=== PATIENT | male | born 1970 | race African-American/Black ===

== ENCOUNTER 2016-10-13 19:12 | Inpatient (IN) | payer OTHER ==
[2016-10-13 19:31] VITALS: BMI 32.3
--- NOTE | 2016-10-13 20:17 | HP ---
CIWA Score - CIWA Score Nausea/Vomitin-Mild Nausea/No Vomiting Muscle Tremors: None Anxiety: 3 Agitation: 4-Moderately Restless Paroxysmal Sweats: No Perspiration Orientation: 1-Uncertain about Date Tacttile Disturbances: 0-None Auditory Disturbances: 1-Very Mild Visual Disturbances: 1-Very Mild Sensitivity Headache: 1-Very Mild CIWA-Ar Total Score: 12 Admission ROS BHS - HPI Chief Complaint: Withdrawal symptoms Allergies/Adverse Reactions: Allergies Allergy/AdvReac Type Severity Reaction Status Date / Time No Known Allergies Allergy Verified 10/13/16 20:14 History of Present Illness: 46 y.o. man with a history of alcohol dependence is here seeking detox. He reports he last completed detox 2 months ago and reports his longest period sober has been 15 months. Exam Limitations: No Limitations - Ebola screening Have you traveled outside of the country in the last 21 days: No Have you had contact with anyone from an Ebola affected area: No Have you been sick,other than usual withdrawal symptoms: No Do you have a fever: No - Review of Systems Constitutional: No Symptoms Reported EENT: reports: No Symptoms Reported Respiratory: reports: No Symptoms reported Cardiac: reports: Lightheadedness GI: reports: Diarrhea : reports: No Symptoms Reported Musculoskeletal: reports: No Symptoms Reported Integumentary: reports: Change in Hair/Nails Neuro: reports: Numbness (Left pinky finger) Endocrine: reports: No Symptoms Reported Hematology: reports: No Symptoms Reported Psychiatric: reports: Agitated, Anxious, Depressed Other Systems: Reviewed and Negative Patient History - Patient Medical History Hx Anemia: No Hx Asthma: No Hx Chronic Obstructive Pulmonary Disease (COPD): No Hx Cancer: No Hx Cardiac Disorders: No Hx Congestive Heart Failure: No Hx Hypertension: Yes Hx Hypercholesterolemia: No Hx Pacemaker: No HX Cerebrovascular Accident: No Hx Seizures: No Hx Dementia: No Hx Diabetes: No Hx Gastrointestinal Disorders: No Hx Liver Disease: No Hx Genitourinary Disorders: No Hx Sexually Transmitted Disorders: No Hx Renal Disease (ESRD): No Hx Thyroid Disease: No Hx Human Immunodeficiency Virus (HIV): No Hx Hepatitis C: No Hx Depression: Yes Hx Suicide Attempt: No Hx Bipolar Disorder: No Hx Schizophrenia: No - Patient Surgical History Past Surgical History: No - PPD History Documented Results: Positive w/o proof Results: Chest x-ray PPD to be Administered?: No - Reproductive History Patient is a Female of Child Bearing Age (11 -55 yrs old): No - Smoking Cessation Smoking history: Current every day smoker Have you smoked in the past 12 months: Yes Aproximately how many cigarettes per day: 10 Initiated information on smoking cessation: Yes 'Breaking Loose' booklet given: 10/13/16 - Substance & Tx. History Hx Alcohol Use: Yes Hx Substance Use: No Substance Use Type: Alcohol Hx Substance Use Treatment: Yes (DETOX: 07/2016; REHAB: 08/2016 ) - Substances Abused Alcohol Frequency: 3-6 times per week Amount used: 6-7 6 PACKS OF BEER Age of first use: 13 Date of Last Use: 10/13/16 Cocaine Route: Inhalation Frequency: 1-3 times last 30 days Amount used: $300 Age of first use: 23 Date of Last Use: 10/12/16 Family Disease History - Family Disease History Family History: Denies Admission Physical Exam [facility] - Vital Signs Vital Signs: Vital Signs - 24 hr 10/13/16 19:27 Temperature 97.1 F L Pulse Rate 60 Respiratory 18 Rate Blood Pressure 126/75 - Physical General Appearance: Yes: Irritable, Anxious HEENTM: Yes: Hearing grossly Normal, Normocephalic, Normal Voice Respiratory: Yes: Chest Non-Tender, Lungs Clear, Normal Breath Sounds, No Respiratory Distress, No Accessory Muscle Use Neck: Yes: No masses,lesions,Nodules, Trachea in good position Breast: Yes: Breast Exam Deferred Cardiology: Yes: Regular Rhythm, Regular Rate Abdominal: Yes: Normal Bowel Sounds, Non Tender Genitourinary: Yes: Other (NO COMPLAINTS REPORTED) Back: Yes: Normal Inspection Musculoskeletal: Yes: full range of Motion, Gait Steady, Pelvis Stable Extremities: Yes: Normal Inspection, Normal Range of Motion, Non-Tender Neurological: Yes: Alert, Normal Mood/Affect, Normal Response Integumentary: Yes: Normal Color, Dry, Warm Lymphatic: Yes: Within Normal Limits - Diagnostic (1) Alcohol dependence with uncomplicated withdrawal Current Visit: Yes Status: Chronic (2) Hypertension Current Visit: Yes Status: Chronic (3) Nicotine dependence Current Visit: Yes Status: Chronic Cleared for Admission [facility] - Detox or Rehab [facility] Level of Care: Medically Managed Detox Regimen/Protocol: Librium S Breath Alcohol Content Breath Alcohol Content: 0 Urine Drug Screen - Results Drug Screen Negative: No Urine Drug Screen Results: ADIEL-Cocaine, OPI-Opiates
[2016-10-13] MEDS ORDERED: P-EPHED 60MG/TRIPROLIDI 2.5MG TABLET PO PRN (20:25)
[2016-10-13] MEDS ORDERED: MAGNESIUM HYDROX 2400MG/30ML ORAL SUSPENSION 30 ML CUP PO PRN (20:25)
[2016-10-13] MEDS ORDERED: MAG HYDROX/AL HYDROX/SIMETH 30 ML UNIT-DOSE CUP PO PRN (20:25)
[2016-10-13] MEDS ORDERED: NICOTINE POLACRILEX 2 MG GUM BC PRN (20:25)
[2016-10-13] MEDS ORDERED: diphenhydrAMINE HCL 50 MG CAPSULE PO PRN (20:25)
[2016-10-13] MEDS ORDERED: hydrOXYzine PAMOATE 50 MG CAPSULE (FP) PO PRN (20:25)
[2016-10-13] MEDS ORDERED: chlordiazePOXIDE HCL 25 MG CAPSULE PO PRN (20:25)
[2016-10-13] MEDS ORDERED: ACETAMINOPHEN 325 MG TABLET (FP) PO PRN (20:25)
[2016-10-13] MEDS ORDERED: LOPERAMIDE HCL 2 MG CAPSULE PO PRN (20:25)
[2016-10-13] MEDS ORDERED: chlordiazePOXIDE HCL 25 MG CAPSULE PO ONE (20:25)
[2016-10-13] MEDS ORDERED: IBUPROFEN 400 MG TABLET (FP) PO PRN (20:25)
[2016-10-13] MEDS ORDERED: MAGNESIUM CITRATE 300 ML BOTTLE PO PRN (20:25)
[2016-10-13] MEDS ORDERED: MENTHOL/PHENOL 1 EACH UD MM PRN (20:25)
[2016-10-13 21:33] LABS: PH,URINE 5.5 (5.0-8.0); URINE APPEARANCE CLEAR; URINE BILIRUBIN NEGATIVE (NEGATIVE); URINE BLOOD NEGATIVE (NEGATIVE); URINE COLOR LT. YELLOW; URINE GLUCOSE (UA) NEGATIVE (NEGATIVE); URINE KETONE NEGATIVE (NEGATIVE); URINE LEUK ESTERASE NEGATIVE (NEGATIVE); URINE NITRITE NEGATIVE (NEGATIVE); URINE UROBILINOGEN 0.2 mg/dL (0.2-1.0)
[2016-10-13 21:36] LABS: URINE PROTEIN 2+ (NEGATIVE)
[2016-10-13 21:50] LABS: URINE MUCUS RARE; URINE RBC 6 /hpf (0-3); URINE WBC 2 /hpf (3-5)
[2016-10-13] MEDS: chlordiazePOXIDE HCL 25 MG CAPSULE PO SCH (22:46)
[2016-10-13] MEDS: THIAMINE HCL 100 MG TABLET (FP) PO SCH (22:46)
[2016-10-13] MEDS: cloNIDine HCL 0.1 MG TABLET PO SCH (22:46)
[2016-10-14] MEDS: chlordiazePOXIDE HCL 25 MG CAPSULE PO SCH ×4 (07:21→22:31)
[2016-10-14] MEDS ORDERED: METOPROLOL SUCCINATE 200 MG TAB.SR.24H PO SCH (10:00)
[2016-10-14 10:28] LABS: MCH 30.4 pg (25.7-33.7); MCHC 34.1 g/dl (32.0-35.9); MEAN CELL VOLUME 89.4 fl (80-96); MEAN PLT VOLUME 6.7 fl (7.5-11.1); PLATELET COUNT 494 K/MM3 (134-434); RDW 14.8 % (11.9-15.9); WHITE BLOOD COUNT 8.3 K/mm3 (4.0-10.0)
[2016-10-14] MEDS: cloNIDine HCL 0.1 MG TABLET PO SCH ×2 (10:41→22:31)
[2016-10-14] MEDS: PRENATAL VITAMINS W/ FOLIC ACID TABLET (FP) PO SCH (10:41)
[2016-10-14] MEDS: amLODIPine BESYLATE 10 MG TABLET (FP) PO SCH (10:41)
[2016-10-14 10:47] LABS: ALBUMIN 3.2 g/dl (3.4-5.0); ANION GAP 10 (8-16); CO2 25 mmol/L (21-32); GLUCOSE,RANDOM 98 mg/dL (74-106)
[2016-10-14] MEDS: NICOTINE 14 MG/24 HOURS TOPICAL PATCH TD SCH (10:47)
[2016-10-14 10:53] LABS: ALK PHOS 81 U/L (45-117); BILIRUBIN,TOTAL 0.4 mg/dL (0.2-1.0); SGOT/AST 17 U/L (15-37); SGPT/ALT 27 U/L (12-78); TOT PROT 6.3 g/dl (6.4-8.2)
--- NOTE | 2016-10-14 11:43 | CONSULT ---
[facility] Psychiatric Consult - Data Date of interview: 10/14/16 Admission source: [facility] Identifying data: First admission to [facility] for this 46 y/o AA male seeking detox treatment on for alcohol dependence.Patient is single,a father of three,homeless,unemployed and reportedly deprived of any source of income. Substance Abuse History: Confirmed by patient. Smoking Cessation. Smoking history: Current every day smoker. Have you smoked in the past 12 months: Yes. Aproximately how many cigarettes per day: 10. Initiated information on smoking cessation: Yes. 'Breaking Loose' booklet given: 10/13/16. - Substance & Tx. History. Hx Alcohol Use: Yes. Hx Substance Use: No. Substance Use Type : Alcohol. Hx Substance Use Treatment: Yes (DETOX: 07/2016; REHAB: 08/2016 ). - Substances Abused. Alcohol. Frequency: 3-6 times per week. Amount used: 6- 7 6 PACKS OF BEER. Age of first use: 13. Date of Last Use: 10/13/16. Cocaine. Route: Inhalation. Frequency: 1-3 times last 30 days. Amount used: $ 300. Age of first use: 23. Date of Last Use: 10/12/16 Medical History: Hypertension.Noted abnormal renal function.Current labs : BUN = 61 - creatinine = 4.0 - GFR = 16.2 (10/14/16). Psychiatric History: Patient declares that he used to be prescribed wellbutrin ( dose not recalled) to address depression.Vague and unconcerned historian.Mr Avery states that he stopped taking that medication months ago.No reported history of psychiatric hospitalizations.No OPD care.Patient denies history of suicide attempts. Physical/Sexual Abuse/Trauma History: Patient denies. Additional Comment: Urine Drug Screen Results: ADEIL-Cocaine, OPI-Opiates.Noted. Mental Status Exam - Mental Status Exam Alert and Oriented to: Time, Place, Person Cognitive Function: Good Patient Appearance: Well Groomed Mood: Nervous, Withdrawn, Irritable Affect: Mood Congruent Patient Behavior: Sedated (light sedation), Fatigued Speech Pattern: Clear Voice Loudness: Normal Thought Process: Goal Oriented Thought Disorder: Not Present Hallucinations: Denies Suicidal Ideation: Denies Homicidal Ideation: Denies Insight/Judgement: Poor Sleep: Well Appetite: Good Muscle strength/Tone: Normal Gait/Station: Normal Psychiatric Findings - Problem List ([place] 1, 2,3) (1) Alcohol dependence with uncomplicated withdrawal Current Visit: Yes Status: Acute (2) Nicotine dependence Current Visit: Yes Status: Acute Qualifiers: Nicotine product type: cigarettes Substance use status: in withdrawal Qualified Code(s): F17.213 - Nicotine dependence, cigarettes, with withdrawal (3) Cocaine dependence Current Visit: Yes Status: Acute (4) Substance induced mood disorder Current Visit: Yes Status: Acute (5) Hypertension Current Visit: Yes Status: Chronic - Initial Treatment Plan Initial Treatment Plan: Psychoeducation.Detoxification.Labs discussed with MERLE Gu for medical follow-up.Patient declines to get back on antidepressant medications.Observation.
--- NOTE | 2016-10-14 12:50 | EKG ---
Test Reason : Blood Pressure : / mmHG Vent. Rate : 051 BPM Atrial Rate : 051 BPM P-R Int : 194 ms QRS Dur : 092 ms QT Int : 518 ms P-R-T Axes : 057 011 038 degrees QTc Int : 477 ms SINUS BRADYCARDIA OTHERWISE NORMAL ECG NO PREVIOUS ECGS AVAILABLE Confirmed by ERWIN FELDER MD ([id number] on 10/14/2016 12:50:13 PM Referred By: Juwan Caal Confirmed By:ERWIN FELDER MD
--- NOTE | 2016-10-14 14:12 | PN ---
[facility] CIWA - CIWA Score Nausea/Vomitin-Mild Nausea/No Vomiting Muscle Tremors: 3 Anxiety: 4-Mod. Anxious/Guarded Agitation: 2 Paroxysmal Sweats: No Perspiration Orientation: 2-Disoriented Date<2 days Tacttile Disturbances: 3-Moderate Itch/Numb/Burn Auditory Disturbances: 0-None Visual Disturbances: 2-Mild Sensitivity Headache: 0-None Present CIWA-Ar Total Score: 17 S Progress Note (SOAP) Subjective: Interrupted sleep, Fatigue, Tremors. Objective: PT. A & O X 2 (DISORIENTED ABOUT DAY / DATE). NO ACUTE DISTRESS. PT. DENIES CHEST PAIN. 10/14/16 14:10 Vital Signs Temperature 98.7 F 10/14/16 10:38 Pulse Rate 61 10/14/16 10:38 Respiratory Rate 20 10/14/16 10:38 Blood Pressure 164/93 10/14/16 10:38 O2 Sat by Pulse Oximetry (%) Laboratory Tests 10/13/16 10/14/16 10/14/16 21:20 07:00 07:00 WBC 8.3 RBC 3.90 L Hgb 11.9 Hct 34.9 L MCV 89.4 MCH 30.4 MCHC 34.1 RDW 14.8 Plt Count 494 H MPV 6.7 L Sodium 143 Potassium 3.8 Chloride 108 H Carbon Dioxide 25 Anion Gap 10 BUN 61 H Creatinine 4.0 H Creat Clearance w eGFR 16.24 Random Glucose 98 Calcium 8.0 L Total Bilirubin 0.4 AST 17 ALT 27 Alkaline Phosphatase 81 Total Protein 6.3 L Albumin 3.2 L Urine Color Lt. yellow Urine Appearance Clear Urine pH 5.5 Ur Specific [place] 1.020 Urine Protein 2+ H Urine Glucose (UA) Negative Urine Ketones Negative Urine Blood Negative Urine Nitrite Negative Urine Bilirubin Negative Urine Urobilinogen 0.2 Ur Leukocyte Esterase Negative Urine RBC 6 Urine WBC 2 Ur Epithelial Cells Rare Urine Mucus Rare RPR Titer 10/14/16 07:00 WBC RBC Hgb Hct MCV MCH MCHC RDW Plt Count MPV Sodium Potassium Chloride Carbon Dioxide Anion Gap BUN Creatinine Creat Clearance w eGFR Random Glucose Calcium Total Bilirubin AST ALT Alkaline Phosphatase Total Protein Albumin Urine Color Urine Appearance Urine pH Ur Specific [place] Urine Protein Urine Glucose (UA) Urine Ketones Urine Blood Urine Nitrite Urine Bilirubin Urine Urobilinogen Ur Leukocyte Esterase Urine RBC Urine WBC Ur Epithelial Cells Urine Mucus RPR Titer Nonreactive LABS NOTED. Assessment: 10/14/16 14:11 WITHDRAWAL SYMPTOMS. Plan: CONTINUE DETOX. INCREASE PO FLUID INTAKE. D/C MAGNESIUM-CONTAINING MEDS. D/C IBUPROFEN. REPEAT UA. HIV, HEP C ANTIBODY TESTS ORDERED. REPEAT CBC, COMP. META. ON 10/14/2016.
[2016-10-14] MEDS: THIAMINE HCL 100 MG TABLET (FP) PO SCH (22:31)
[2016-10-14 23:31] LABS: URINE APPEARANCE CLEAR; URINE BILIRUBIN NEGATIVE (NEGATIVE); URINE BLOOD 1+ (NEGATIVE); URINE COLOR COLORLESS; URINE GLUCOSE (UA) 1+ (NEGATIVE); URINE KETONE NEGATIVE (NEGATIVE); URINE LEUK ESTERASE NEGATIVE (NEGATIVE); URINE NITRITE NEGATIVE (NEGATIVE); URINE PROTEIN NEGATIVE (NEGATIVE); URINE UROBILINOGEN NEGATIVE mg/dL (0.2-1.0)
[2016-10-14 23:37] LABS: URINE RBC <1 /hpf (0-3)
[2016-10-15] MEDS: chlordiazePOXIDE HCL 25 MG CAPSULE PO SCH ×3 (05:37→17:27)
[2016-10-15] MEDS ORDERED: cloNIDine HCL 0.1 MG TABLET PO ONE ×2 (06:33→11:03)
[2016-10-15] MEDS: METOPROLOL SUCCINATE 100 MG TAB.SR.24H (FP) PO SCH (10:44)
[2016-10-15] MEDS: NICOTINE 14 MG/24 HOURS TOPICAL PATCH TD SCH (10:44)
[2016-10-15] MEDS: cloNIDine HCL 0.1 MG TABLET PO SCH ×2 (10:44→22:27)
[2016-10-15] MEDS: amLODIPine BESYLATE 10 MG TABLET (FP) PO SCH (10:44)
[2016-10-15] MEDS: PRENATAL VITAMINS W/ FOLIC ACID TABLET (FP) PO SCH (10:45)
[2016-10-15 10:58] LABS: ALBUMIN 3.4 g/dl (3.4-5.0); ALK PHOS 71 U/L (45-117); ANION GAP 10 (8-16); BILIRUBIN,TOTAL 0.5 mg/dL (0.2-1.0); CALCIUM 8.4 mg/dL (8.5-10.1); CO2 27 mmol/L (21-32); GLUCOSE,RANDOM 87 mg/dL (74-106); SGOT/AST 13 U/L (15-37); SGPT/ALT 26 U/L (12-78); TOT PROT 6.7 g/dl (6.4-8.2)
[2016-10-15 11:28] LABS: HIV 1 & 2 AB NEGATIVE; HIV 1 AGp24 NEGATIVE
--- NOTE | 2016-10-15 15:04 | PN ---
[facility] CIWA - CIWA Score Nausea/Vomitin-Mild Nausea/No Vomiting Muscle Tremors: 3 Anxiety: 4-Mod. Anxious/Guarded Agitation: 2 Paroxysmal Sweats: 3 Orientation: 0-Oriented Tacttile Disturbances: 3-Moderate Itch/Numb/Burn Auditory Disturbances: 2-Mild Harshness/Frighten Visual Disturbances: 0-None Headache: 0-None Present CIWA-Ar Total Score: 18 BHS Progress Note (SOAP) Subjective: Anxious, Tremors, Sweating. Objective: PT. A & O X 3, OBSERVED AMBULATING ON UNIT. NO ACUTE DISTRESS. PT. DENIES CHEST PAIN. 10/15/16 14:58 Vital Signs Temperature 98.0 F 10/15/16 14:29 Pulse Rate 65 10/15/16 14:29 Respiratory Rate 18 10/15/16 14:29 Blood Pressure 180/101 10/15/16 14:29 O2 Sat by Pulse Oximetry (%) Laboratory Tests 10/13/16 10/14/16 10/14/16 21:20 07:00 07:00 WBC 8.3 RBC 3.90 L Hgb 11.9 Hct 34.9 L MCV 89.4 MCH 30.4 MCHC 34.1 RDW 14.8 Plt Count 494 H MPV 6.7 L Sodium 143 Potassium 3.8 Chloride 108 H Carbon Dioxide 25 Anion Gap 10 BUN 61 H Creatinine 4.0 H Creat Clearance w eGFR 16.24 Random Glucose 98 Calcium 8.0 L Total Bilirubin 0.4 AST 17 ALT 27 Alkaline Phosphatase 81 Total Protein 6.3 L Albumin 3.2 L Urine Color Lt. yellow Urine Appearance Clear Urine pH 5.5 Ur Specific [place] 1.020 Urine Protein 2+ H Urine Glucose (UA) Negative Urine Ketones Negative Urine Blood Negative Urine Nitrite Negative Urine Bilirubin Negative Urine Urobilinogen 0.2 Ur Leukocyte Esterase Negative Urine RBC 6 Urine WBC 2 Ur Epithelial Cells Rare Urine Mucus Rare RPR Titer HIV 1&2 Antibody Screen HIV P24 Antigen 10/14/16 10/14/16 10/15/16 07:00 22:32 07:00 WBC RBC Hgb Hct MCV MCH MCHC RDW Plt Count MPV Sodium 143 Potassium 3.9 Chloride 106 Carbon Dioxide 27 Anion Gap 10 BUN 42 H D Creatinine 3.0 H D Creat Clearance w eGFR 22.64 Random Glucose 87 Calcium 8.4 L Total Bilirubin 0.5 D AST 13 L D ALT 26 Alkaline Phosphatase 71 Total Protein 6.7 Albumin 3.4 Urine Color Colorless Urine Appearance Clear Urine pH 6.0 Ur Specific [place] <= 1.005 Urine Protein Negative Urine Glucose (UA) 1+ H Urine Ketones Negative Urine Blood 1+ H Urine Nitrite Negative Urine Bilirubin Negative Urine Urobilinogen Negative Ur Leukocyte Esterase Negative Urine RBC <1 Urine WBC None Ur Epithelial Cells Rare Urine Mucus RPR Titer Nonreactive HIV 1&2 Antibody Screen HIV P24 Antigen 10/15/16 07:00 WBC RBC Hgb Hct MCV MCH MCHC RDW Plt Count MPV Sodium Potassium Chloride Carbon Dioxide Anion Gap BUN Creatinine Creat Clearance w eGFR Random Glucose Calcium Total Bilirubin AST ALT Alkaline Phosphatase Total Protein Albumin Urine Color Urine Appearance Urine pH Ur Specific [place] Urine Protein Urine Glucose (UA) Urine Ketones Urine Blood Urine Nitrite Urine Bilirubin Urine Urobilinogen Ur Leukocyte Esterase Urine RBC Urine WBC Ur Epithelial Cells Urine Mucus RPR Titer HIV 1&2 Antibody Screen Negative HIV P24 Antigen Negative LABS NOTED. RESULTS OF REPEAT CMP NOTED. 10/15/16 15:05 Assessment: 10/15/16 15:01 WITHDRAWAL SYMPTOMS. Plan: CONTINUE DETOX. PER PATIENT REPORT AND HOME MEDICATION LIST, CLONIDINE DOSE CHANGED TO 0.3 MG PO BID. START LISINOPRIL, 10 MG PO BID. INCREASE PO FLUID INTAKE. CONTINUE TO MONITOR BP.
[2016-10-15] MEDS: chlordiazePOXIDE 5 MG CAPSULE PO SCH (22:26)
[2016-10-15] MEDS: LISINOPRIL 10 MG TABLET (FP) PO SCH (22:27)
[2016-10-15] MEDS: THIAMINE HCL 100 MG TABLET (FP) PO SCH (22:27)
[2016-10-15] MEDS: guaiFENesin/D-METHORPHAN HB 10 ML UNIT-DOSE CUPS PO PRN (22:30)
[2016-10-16] MEDS: chlordiazePOXIDE 5 MG CAPSULE PO SCH ×3 (05:53→19:08)
[2016-10-16] MEDS: amLODIPine BESYLATE 10 MG TABLET (FP) PO SCH (10:19)
[2016-10-16] MEDS: cloNIDine HCL 0.1 MG TABLET PO SCH ×2 (10:19→22:27)
[2016-10-16] MEDS: METOPROLOL SUCCINATE 100 MG TAB.SR.24H (FP) PO SCH (10:19)
[2016-10-16] MEDS: LISINOPRIL 10 MG TABLET (FP) PO SCH ×2 (10:19→22:28)
[2016-10-16] MEDS: PRENATAL VITAMINS W/ FOLIC ACID TABLET (FP) PO SCH (10:19)
[2016-10-16] MEDS: NICOTINE 14 MG/24 HOURS TOPICAL PATCH TD SCH (10:20)
--- NOTE | 2016-10-16 16:43 | PN ---
S Progress Note (SOAP) Subjective: Anxious, Fatigue. Objective: PT. A & O X 3, OBSERVED AMBULATING ON UNIT. NO ACUTE DISTRESS. PT. DENIES CHEST PAIN. 10/16/16 16:40 Vital Signs Temperature 96.8 F L 10/16/16 09:11 Pulse Rate 56 L 10/16/16 13:13 Respiratory Rate 18 10/16/16 13:13 Blood Pressure 155/94 10/16/16 13:13 O2 Sat by Pulse Oximetry (%) Laboratory Tests 10/13/16 10/14/16 10/14/16 21:20 07:00 07:00 WBC 8.3 RBC 3.90 L Hgb 11.9 Hct 34.9 L MCV 89.4 MCH 30.4 MCHC 34.1 RDW 14.8 Plt Count 494 H MPV 6.7 L Sodium 143 Potassium 3.8 Chloride 108 H Carbon Dioxide 25 Anion Gap 10 BUN 61 H Creatinine 4.0 H Creat Clearance w eGFR 16.24 Random Glucose 98 Calcium 8.0 L Total Bilirubin 0.4 AST 17 ALT 27 Alkaline Phosphatase 81 Total Protein 6.3 L Albumin 3.2 L Urine Color Lt. yellow Urine Appearance Clear Urine pH 5.5 Ur Specific [place] 1.020 Urine Protein 2+ H Urine Glucose (UA) Negative Urine Ketones Negative Urine Blood Negative Urine Nitrite Negative Urine Bilirubin Negative Urine Urobilinogen 0.2 Ur Leukocyte Esterase Negative Urine RBC 6 Urine WBC 2 Ur Epithelial Cells Rare Urine Mucus Rare RPR Titer HIV 1&2 Antibody Screen HIV P24 Antigen 10/14/16 10/14/16 10/15/16 07:00 22:32 07:00 WBC RBC Hgb Hct MCV MCH MCHC RDW Plt Count MPV Sodium 143 Potassium 3.9 Chloride 106 Carbon Dioxide 27 Anion Gap 10 BUN 42 H D Creatinine 3.0 H D Creat Clearance w eGFR 22.64 Random Glucose 87 Calcium 8.4 L Total Bilirubin 0.5 D AST 13 L D ALT 26 Alkaline Phosphatase 71 Total Protein 6.7 Albumin 3.4 Urine Color Colorless Urine Appearance Clear Urine pH 6.0 Ur Specific [place] <= 1.005 Urine Protein Negative Urine Glucose (UA) 1+ H Urine Ketones Negative Urine Blood 1+ H Urine Nitrite Negative Urine Bilirubin Negative Urine Urobilinogen Negative Ur Leukocyte Esterase Negative Urine RBC <1 Urine WBC None Ur Epithelial Cells Rare Urine Mucus RPR Titer Nonreactive HIV 1&2 Antibody Screen HIV P24 Antigen 10/15/16 07:00 WBC RBC Hgb Hct MCV MCH MCHC RDW Plt Count MPV Sodium Potassium Chloride Carbon Dioxide Anion Gap BUN Creatinine Creat Clearance w eGFR Random Glucose Calcium Total Bilirubin AST ALT Alkaline Phosphatase Total Protein Albumin Urine Color Urine Appearance Urine pH Ur Specific [place] Urine Protein Urine Glucose (UA) Urine Ketones Urine Blood Urine Nitrite Urine Bilirubin Urine Urobilinogen Ur Leukocyte Esterase Urine RBC Urine WBC Ur Epithelial Cells Urine Mucus RPR Titer HIV 1&2 Antibody Screen Negative HIV P24 Antigen Negative LABS NOTED. HCV ANTIBODY TEST RESULT PENDING. 10/16/16 16:41 Assessment: 10/16/16 16:40 WITHDRAWAL SYMPTOMS. Plan: CONTINUE DETOX. PT. ADVISED TO FOLLOW-UP WITH BUDGET ASSISTANT DR. LAMAS ON [facility] FOR MEDICAL ASSESSMENT AND FOR HISTORY OF HTN AFTER DISCHARGE FROM DETOX.
[2016-10-16] MEDS: THIAMINE HCL 100 MG TABLET (FP) PO SCH (22:29)
[2016-10-16] MEDS: chlordiazePOXIDE HCL 10 MG CAPSULE PO SCH (22:30)
[2016-10-17] MEDS: chlordiazePOXIDE HCL 10 MG CAPSULE PO SCH ×2 (05:40→10:33)
[2016-10-17 06:28] VITALS: BP 129/81; PULSE 53; TEMP 97.7
--- NOTE | 2016-10-17 08:47 | DS ---
[facility] Detox Discharge Summary Admission Date: 10/13/16 Discharge Date: 10/17/16 - History Present History: Alcohol Dependence Additional Comments: DETOX COMPLETED.ALERT O X 3. NAD.PT ENCOURAGED TO FOLLOW UP WITH [facility], DR LAMAS AT [address] [place] [address] FOR MEDICAL MANAGEMENT. Pertinent Past History: HTN - Physical Exam Results Vital Signs: Vital Signs Temperature 97.7 F 10/17/16 06:28 Pulse Rate 53 L 10/17/16 06:28 Respiratory Rate 18 10/17/16 06:28 Blood Pressure 129/81 10/17/16 06:28 O2 Sat by Pulse Oximetry (%) Pertinent Admission Physical Exam Findings: WITHDRAWAL SX Laboratory Last Values WBC 8.3 K/mm3 (4.0-10.0) 10/14/16 07:00 RBC 3.90 M/mm3 (4.00-5.60) L 10/14/16 07:00 Hgb 11.9 GM/dL (11.7-16.9) 10/14/16 07:00 Hct 34.9 % (35.4-49) L 10/14/16 07:00 MCV 89.4 fl (80-96) 10/14/16 07:00 MCH 30.4 pg (25.7-33.7) 10/14/16 07:00 MCHC 34.1 g/dl (32.0-35.9) 10/14/16 07:00 RDW 14.8 % (11.9-15.9) 10/14/16 07:00 Plt Count 494 K/MM3 (134-434) H 10/14/16 07:00 MPV 6.7 fl (7.5-11.1) L 10/14/16 07:00 Sodium 143 mmol/L (136-145) 10/15/16 07:00 Potassium 3.9 mmol/L (3.5-5.1) 10/15/16 07:00 Chloride 106 mmol/L (98-107) 10/15/16 07:00 Carbon Dioxide 27 mmol/L (21-32) 10/15/16 07:00 Anion Gap 10 (8-16) 10/15/16 07:00 BUN 42 mg/dL (7-18) H D 10/15/16 07:00 Creatinine 3.0 mg/dL (0.7-1.3) H D 10/15/16 07:00 Creat Clearance w eGFR 22.64 (>60) 10/15/16 07:00 Random Glucose 87 mg/dL (74-106) 10/15/16 07:00 Calcium 8.4 mg/dL (8.5-10.1) L 10/15/16 07:00 Total Bilirubin 0.5 mg/dL (0.2-1.0) D 10/15/16 07:00 AST 13 U/L (15-37) L D 10/15/16 07:00 ALT 26 U/L (12-78) 10/15/16 07:00 Alkaline Phosphatase 71 U/L (45-117) 10/15/16 07:00 Total Protein 6.7 g/dl (6.4-8.2) 10/15/16 07:00 Albumin 3.4 g/dl (3.4-5.0) 10/15/16 07:00 Urine Color Colorless 10/14/16 22:32 Urine Appearance Clear 10/14/16 22:32 Urine pH 6.0 (5.0-8.0) 10/14/16 22:32 Ur Specific [place] <= 1.005 (1.005-1.025) 10/14/16 22:32 Urine Protein Negative (NEGATIVE) 10/14/16 22:32 Urine Glucose (UA) 1+ (NEGATIVE) H 10/14/16 22:32 Urine Ketones Negative (NEGATIVE) 10/14/16 22:32 Urine Blood 1+ (NEGATIVE) H 10/14/16 22:32 Urine Nitrite Negative (NEGATIVE) 10/14/16 22:32 Urine Bilirubin Negative (NEGATIVE) 10/14/16 22:32 Urine Urobilinogen Negative mg/dL (0.2-1.0) 10/14/16 22:32 Ur Leukocyte Esterase Negative (NEGATIVE) 10/14/16 22:32 Urine RBC <1 /hpf (0-3) 10/14/16 22:32 Urine WBC None /hpf (3-5) 10/14/16 22:32 Ur Epithelial Cells Rare /hpf (FEW) 10/14/16 22:32 Urine Mucus Rare 10/13/16 21:20 RPR Titer Nonreactive (NONREACTIVE) 10/14/16 07:00 HIV 1&2 Antibody Screen Negative 10/15/16 07:00 HIV P24 Antigen Negative 10/15/16 07:00 - Treatment Hospital Course: Detox Protocol Followed, Detoxed Safely, Responded well, Discharged Condition Good, Rehab Referral Accepted Patient has Accepted a Rehab Referral to: [facility] - Medication Discharge Medications: Ambulatory Orders Amlodipine Besylate [Norvasc -] 10 mg PO DAILY 10/13/16 Bupropion HCl [Wellbutrin -] 100 mg PO DAILY 10/13/16 Clonidine HCl [Catapres -] 0.3 mg PO BID 10/13/16 Metoprolol Succinate [Toprol Xl -] 200 mg PO DAILY 10/13/16 Terbinafine HCl [Lamisil] 250 mg PO DAILY 10/13/16 - Diagnosis (1) Alcohol dependence with uncomplicated withdrawal Status: Acute (2) Cocaine dependence Status: Acute Qualifiers: Substance use status: uncomplicated Qualified Code(s): F14.20 - Cocaine dependence, uncomplicated (3) Nicotine dependence Status: Acute Qualifiers: Nicotine product type: cigarettes Substance use status: in withdrawal Qualified Code(s): F17.213 - Nicotine dependence, cigarettes, with withdrawal (4) Hypertension Status: Chronic - AMA Did Patient Leave Against Medical Advice: No
[2016-10-17] MEDS: LISINOPRIL 10 MG TABLET (FP) PO SCH (10:32)
[2016-10-17] MEDS: NICOTINE 14 MG/24 HOURS TOPICAL PATCH TD SCH (10:32)
[2016-10-17] MEDS: METOPROLOL SUCCINATE 100 MG TAB.SR.24H (FP) PO SCH (10:32)
[2016-10-17] MEDS: PRENATAL VITAMINS W/ FOLIC ACID TABLET (FP) PO SCH (10:32)
[2016-10-17] MEDS: cloNIDine HCL 0.1 MG TABLET PO SCH (10:32)
[2016-10-17] MEDS: amLODIPine BESYLATE 10 MG TABLET (FP) PO SCH (10:32)
[2016-10-17] MEDS: guaiFENesin/D-METHORPHAN HB 10 ML UNIT-DOSE CUPS PO PRN (10:35)
== END 2016-10-17 13:07 | disposition other institution (70) | DRG 774 ==
LOC: YASAS 19:12 → Y3N 20:37
PROVIDERS: ADMIT Internal Medicine Addiction Medicine; ATTEND Internal Medicine Addiction Medicine
PROC: HZ2ZZZZ Detoxification Services for Substance Abuse Treatment (ICD-10-PCS; principal; 2016-10-13)
DX: F10.230 Alcohol dependence with withdrawal, uncomplicated (principal); F14.20 Cocaine dependence, uncomplicated; F17.213 Nicotine dependence, cigarettes, with withdrawal; F19.24 Other psychoactive substance dependence with psychoactive substance-induced mood disorder; I10 Essential (primary) hypertension
CPT/HCPCS: 36415; 71020-TC; 80053; 81003; 81015; 85027; 86593; 86803; 87389; 93005; 93010

== ENCOUNTER 2016-10-17 13:35 | Inpatient (IN) | payer OTHER ==
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
[2016-10-17] MEDS ORDERED: MAG HYDROX/AL HYDROX/SIMETH 30 ML UNIT-DOSE CUP PO PRN (15:24)
[2016-10-17] MEDS ORDERED: MENTHOL/PHENOL 1 EACH UD MM PRN (15:24)
[2016-10-17] MEDS ORDERED: P-EPHED 60MG/TRIPROLIDI 2.5MG TABLET PO PRN (15:24)
[2016-10-17] MEDS ORDERED: MAGNESIUM HYDROX 2400MG/30ML ORAL SUSPENSION 30 ML CUP PO PRN (15:24)
[2016-10-17] MEDS ORDERED: hydrOXYzine PAMOATE 50 MG CAPSULE (FP) PO PRN (15:24)
[2016-10-17] MEDS ORDERED: LOPERAMIDE HCL 2 MG CAPSULE PO PRN (15:24)
[2016-10-17] MEDS ORDERED: MAGNESIUM CITRATE 300 ML BOTTLE PO PRN (15:24)
[2016-10-17] MEDS ORDERED: IBUPROFEN 400 MG TABLET (FP) PO PRN (15:24)
[2016-10-17] MEDS ORDERED: NICOTINE POLACRILEX 2 MG GUM BUC PRN (15:24)
[2016-10-17] MEDS ORDERED: ACETAMINOPHEN 325 MG TABLET (FP) PO PRN (15:24)
--- NOTE | 2016-10-17 16:30 | HP ---
[facility] Assess/Revision - Admission History Admitted to Rehab from: [facility] Date of Admission to Rehab: 10/17/16 - Findings Detox History & Physical reviewed: Yes Concur with findings: Yes Comments/Additional Findings: transferred from detox to rehab admission as per protocol
[2016-10-17] MEDS: NICOTINE 14 MG/24 HOURS TOPICAL PATCH TD SCH (17:29)
[2016-10-17] MEDS: cloNIDine HCL 0.1 MG TABLET PO SCH (21:41)
[2016-10-17] MEDS: THIAMINE HCL 100 MG TABLET (FP) PO SCH (21:41)
[2016-10-17] MEDS ORDERED: traZODone HCL 50 MG TABLET (FP) PO SCH (22:00)
[2016-10-18] MEDS: guaiFENesin/D-METHORPHAN HB 10 ML UNIT-DOSE CUPS PO PRN (04:39)
[2016-10-18] MEDS ORDERED: METOPROLOL SUCCINATE 100 MG TAB.SR.24H (FP) PO SCH (10:00)
[2016-10-18] MEDS ORDERED: amLODIPine BESYLATE 10 MG TABLET (FP) PO SCH (10:00)
[2016-10-18] MEDS ORDERED: buPROPion HCL 100 MG TABLET PO SCH (10:00)
[2016-10-18] MEDS: NICOTINE 14 MG/24 HOURS TOPICAL PATCH TD SCH (10:41)
[2016-10-18] MEDS: cloNIDine HCL 0.1 MG TABLET PO SCH (10:42)
[2016-10-18] MEDS: PRENATAL VITAMINS W/ FOLIC ACID TABLET (FP) PO SCH (10:43)
--- NOTE | 2016-10-18 13:39 | PN ---
Psychiatric Progress Note Vital Signs: Vital Signs Period Temp Pulse Resp BP Sys/Lemus Pulse Ox Last 24 Hr 97.5 F 59-62 18-20 106-121/75-75 Date of Session: 10/18/16 Chief Complaint:: Insomnia HPI: Patient addressing Alcohol and Cocaine Dependence comorbid with Nicotine Dependence and Substance-Induced Mood Disorder ROS: HTN, +PPD, Abnormal liver function Current Medications: Active Medications Generic Name Dose Route Start Last Admin Trade Name Freq PRN Reason Stop Dose Admin Acetaminophen 650 mg 10/17/16 15:24 Tylenol - PO Q4H PRN FEVER OR PAIN Al Hydroxide/Mg Hydroxide 30 ml 10/17/16 15:24 Mylanta Oral Suspension - PO Q6H PRN DYSPEPSIA Amlodipine Besylate 10 mg 10/18/16 10:00 10/18/16 10:42 Norvasc - PO 10 mg DAILY JESÚS Administration Bupropion HCl 100 mg 10/18/16 10:00 10/18/16 10:42 Wellbutrin - PO 100 mg DAILY JESÚS Administration Clonidine 0.3 mg 10/17/16 22:00 10/18/16 10:42 Catapres - PO 0.3 mg BID JESÚS Administration Diphenhydramine HCl 50 mg 10/17/16 15:24 Benadryl - PO HSMR1 PRN FOR ITCHING Eucalyptus/Menthol/Phenol/Sorbitol 1 each 10/17/16 15:24 Cepastat Lozenge - MM Q4H PRN SORE THROAT Guaifenesin 10 ml 10/17/16 15:24 10/18/16 04:39 Robitussin Dm - PO 10 ml Q6H PRN Administration COUGH Hydroxyzine Pamoate 50 mg 10/17/16 15:24 Vistaril - PO Q4H PRN AGITATION Ibuprofen 400 mg 10/17/16 15:24 Motrin - PO Q6H PRN PAIN Loperamide HCl 4 mg 10/17/16 15:24 Imodium - PO Q6H PRN DIARRHEA Magnesium Citrate 300 ml 10/17/16 15:24 Citroma - PO 10/19/16 15:25 Q48H PRN CONSTIPATION Magnesium Hydroxide 30 ml 10/17/16 15:24 Milk Of Magnesia - PO DAILY PRN CONSTIPATION Melatonin 5 mg 10/18/16 13:17 Melatonin PO HS PRN INSOMNIA Metoprolol Succinate 200 mg 10/18/16 10:00 10/18/16 10:40 Toprol Xl - PO 200 mg DAILY JESÚS Administration Nicotine 14 mg 10/17/16 15:30 10/18/16 10:41 Nicoderm Patch - TD Not Given DAILY JESÚS Nicotine Polacrilex 2 mg 10/17/16 15:24 Nicorette Gum - BUC Q2H PRN NICOTINE REPLACEMENT RX Non-Formulary Medication 250 mg 10/18/16 10:00 Terbinafine Hcl [Lamisil] PO DAILY JESÚS Multivit/Folic Acid/Iron 1 tab 10/18/16 10:00 10/18/16 10:43 Vitamins (Sjr) - PO 1 tab DAILY JESÚS Administration Pseudoephedrine/Triprolidine 1 combo 10/17/16 15:24 10/18/16 04:38 Actifed - PO 1 combo TID PRN Administration NASAL CONGESTION Thiamine HCl 100 mg 10/17/16 22:00 10/17/16 21:41 Vitamin B1 - PO 100 mg HS JESÚS Administration Medication(s) Change(s): Start Melatonin 5 mg po HS Current Side Effect: No Lab tests ordered: Yes Lab tests reviewed: Yes Provider note:: Patient was ordered Trazadone for insomnia. Reports that he does not take trazadone due to experiencing priapism o it once. Reports that he takes Melatonin and Benadryl Total face to face time:: 15 Mental Status Exam - Mental Status Exam Alert and Oriented to: Time, Place, Person Cognitive Function: Fair Patient Appearance: Well Groomed Mood: Hopeful, Euthymic Affect: Appropriate Patient Behavior: Cooperative Speech Pattern: Clear Voice Loudness: Normal Thought Process: Intact, Goal Oriented Thought Disorder: Not Present Hallucinations: Denies Suicidal Ideation: Denies Homicidal Ideation: Denies Insight/Judgement: Fair Sleep: Poorly Appetite: Good Muscle strength/Tone: Normal Gait/Station: Normal Psychiatric Treatment Plan - Problem List (1) Alcohol dependence Current Visit: Yes (2) Cocaine dependence Current Visit: No (3) Nicotine dependence Current Visit: No Qualifiers: Qualified Code(s): F17.213 - Nicotine dependence, cigarettes, with withdrawal (4) Substance induced mood disorder Current Visit: No (5) Hypertension Current Visit: No (6) PPD positive, treated Current Visit: Yes (7) Abnormal kidney function Current Visit: Yes Initial treatment plan: 1) Discontinue Trazadone 100 mg po HS. 2) Start Melatonin 5 mg po HS. 3) monitor progress
[2016-10-18] MEDS: PATIENT'S OWN MEDICATION (NON-FORMULARY) (Terbinafine Hcl [Lamisil] 250 MG) PO SCH (14:36)
[2016-10-18] MEDS ORDERED: PT OWN MED DRAWER 7, Y5N ONE ×3 (14:38→21:47)
[2016-10-18] MEDS: CLONIDINE HCL 0.3 MG PO SCH (21:19)
[2016-10-18] MEDS: THIAMINE HCL 100 MG TABLET (FP) PO SCH (21:21)
[2016-10-19] MEDS: PRENATAL VITAMINS W/ FOLIC ACID TABLET (FP) PO SCH (09:49)
[2016-10-19] MEDS: METOPROLOL SUCCINATE 200 MG TAB.SR.24H PO SCH (09:49)
[2016-10-19] MEDS: buPROPion HCL 100 MG TABLET PO SCH (09:49)
[2016-10-19] MEDS: PATIENT'S OWN MEDICATION (NON-FORMULARY) (Terbinafine Hcl [Lamisil] 250 MG) PO SCH (09:49)
[2016-10-19] MEDS: amLODIPine BESYLATE 10 MG TABLET (FP) PO SCH (09:49)
[2016-10-19] MEDS: NICOTINE 14 MG/24 HOURS TOPICAL PATCH TD SCH (09:50)
[2016-10-19] MEDS ORDERED: PT OWN MED DRAWER 7, Y5N ONE ×2 (09:52→22:11)
[2016-10-19] MEDS: CLONIDINE HCL 0.3 MG PO SCH ×2 (09:52→21:27)
[2016-10-19] MEDS: guaiFENesin/D-METHORPHAN HB 10 ML UNIT-DOSE CUPS PO PRN (19:57)
[2016-10-19] MEDS: THIAMINE HCL 100 MG TABLET (FP) PO SCH (21:27)
[2016-10-19] MEDS: MELATONIN 5 MG TABLETS PO PRN (21:29)
[2016-10-20] MEDS: CLONIDINE HCL 0.3 MG PO SCH ×2 (09:55→21:21)
[2016-10-20] MEDS: buPROPion HCL 100 MG TABLET PO SCH (09:55)
[2016-10-20] MEDS: PRENATAL VITAMINS W/ FOLIC ACID TABLET (FP) PO SCH (09:55)
[2016-10-20] MEDS: METOPROLOL SUCCINATE 200 MG TAB.SR.24H PO SCH (09:55)
[2016-10-20] MEDS: PATIENT'S OWN MEDICATION (NON-FORMULARY) (Terbinafine Hcl [Lamisil] 250 MG) PO SCH (09:55)
[2016-10-20] MEDS: amLODIPine BESYLATE 10 MG TABLET (FP) PO SCH (09:55)
[2016-10-20] MEDS: NICOTINE 14 MG/24 HOURS TOPICAL PATCH TD SCH (10:05)
[2016-10-20] MEDS: THIAMINE HCL 100 MG TABLET (FP) PO SCH (21:20)
[2016-10-21] MEDS: PRENATAL VITAMINS W/ FOLIC ACID TABLET (FP) PO SCH (09:38)
[2016-10-21] MEDS: PATIENT'S OWN MEDICATION (NON-FORMULARY) (Terbinafine Hcl [Lamisil] 250 MG) PO SCH (09:39)
[2016-10-21] MEDS: buPROPion HCL 100 MG TABLET PO SCH (09:39)
[2016-10-21] MEDS: CLONIDINE HCL 0.3 MG PO SCH ×2 (09:39→21:26)
[2016-10-21] MEDS: METOPROLOL SUCCINATE 200 MG TAB.SR.24H PO SCH (09:39)
[2016-10-21] MEDS: amLODIPine BESYLATE 10 MG TABLET (FP) PO SCH (09:39)
[2016-10-21] MEDS: NICOTINE 14 MG/24 HOURS TOPICAL PATCH TD SCH (09:40)
[2016-10-21] MEDS: THIAMINE HCL 100 MG TABLET (FP) PO SCH (21:25)
[2016-10-21] MEDS: MELATONIN 5 MG TABLETS PO PRN (21:25)
[2016-10-22] MEDS: buPROPion HCL 100 MG TABLET PO SCH (09:49)
[2016-10-22] MEDS: PATIENT'S OWN MEDICATION (NON-FORMULARY) (Terbinafine Hcl [Lamisil] 250 MG) PO SCH (09:49)
[2016-10-22] MEDS: amLODIPine BESYLATE 10 MG TABLET (FP) PO SCH (09:49)
[2016-10-22] MEDS: CLONIDINE HCL 0.3 MG PO SCH ×2 (09:49→21:26)
[2016-10-22] MEDS: NICOTINE 14 MG/24 HOURS TOPICAL PATCH TD SCH (09:49)
[2016-10-22] MEDS: METOPROLOL SUCCINATE 200 MG TAB.SR.24H PO SCH (09:49)
[2016-10-22] MEDS: PRENATAL VITAMINS W/ FOLIC ACID TABLET (FP) PO SCH (09:49)
[2016-10-22] MEDS: guaiFENesin/D-METHORPHAN HB 10 ML UNIT-DOSE CUPS PO PRN (10:14)
[2016-10-22] MEDS: THIAMINE HCL 100 MG TABLET (FP) PO SCH (21:25)
[2016-10-22] MEDS: diphenhydrAMINE HCL 50 MG CAPSULE PO PRN (21:27)
[2016-10-23] MEDS ORDERED: PT OWN MED DRAWER 7, Y5N ONE (08:50)
[2016-10-23] MEDS: PRENATAL VITAMINS W/ FOLIC ACID TABLET (FP) PO SCH (09:59)
[2016-10-23] MEDS: amLODIPine BESYLATE 10 MG TABLET (FP) PO SCH (09:59)
[2016-10-23] MEDS: METOPROLOL SUCCINATE 200 MG TAB.SR.24H PO SCH (10:00)
[2016-10-23] MEDS: CLONIDINE HCL 0.3 MG PO SCH ×2 (10:00→21:27)
[2016-10-23] MEDS: PATIENT'S OWN MEDICATION (NON-FORMULARY) (Terbinafine Hcl [Lamisil] 250 MG) PO SCH (10:00)
[2016-10-23] MEDS: buPROPion HCL 100 MG TABLET PO SCH (10:00)
[2016-10-23] MEDS: NICOTINE 14 MG/24 HOURS TOPICAL PATCH TD SCH (10:02)
[2016-10-23] MEDS: THIAMINE HCL 100 MG TABLET (FP) PO SCH (21:27)
[2016-10-23] MEDS: diphenhydrAMINE HCL 50 MG CAPSULE PO PRN (21:27)
[2016-10-23] MEDS: MELATONIN 5 MG TABLETS PO PRN (21:28)
[2016-10-24] MEDS: amLODIPine BESYLATE 10 MG TABLET (FP) PO SCH (10:03)
[2016-10-24] MEDS: buPROPion HCL 100 MG TABLET PO SCH (10:03)
[2016-10-24] MEDS: PRENATAL VITAMINS W/ FOLIC ACID TABLET (FP) PO SCH (10:03)
[2016-10-24] MEDS: CLONIDINE HCL 0.3 MG PO SCH ×2 (10:04→21:18)
[2016-10-24] MEDS: METOPROLOL SUCCINATE 200 MG TAB.SR.24H PO SCH (10:04)
[2016-10-24] MEDS: NICOTINE 14 MG/24 HOURS TOPICAL PATCH TD SCH (10:04)
[2016-10-24] MEDS: PATIENT'S OWN MEDICATION (NON-FORMULARY) (Terbinafine Hcl [Lamisil] 250 MG) PO SCH (10:07)
[2016-10-24] MEDS: THIAMINE HCL 100 MG TABLET (FP) PO SCH (21:18)
[2016-10-24] MEDS: MELATONIN 5 MG TABLETS PO PRN (21:18)
[2016-10-24] MEDS: diphenhydrAMINE HCL 50 MG CAPSULE PO PRN (21:18)
[2016-10-25] MEDS: buPROPion HCL 100 MG TABLET PO SCH (09:55)
[2016-10-25] MEDS: PRENATAL VITAMINS W/ FOLIC ACID TABLET (FP) PO SCH (09:55)
[2016-10-25] MEDS: amLODIPine BESYLATE 10 MG TABLET (FP) PO SCH (09:56)
[2016-10-25] MEDS: CLONIDINE HCL 0.3 MG PO SCH ×2 (09:56→21:18)
[2016-10-25] MEDS: METOPROLOL SUCCINATE 200 MG TAB.SR.24H PO SCH (09:57)
[2016-10-25] MEDS: PATIENT'S OWN MEDICATION (NON-FORMULARY) (Terbinafine Hcl [Lamisil] 250 MG) PO SCH (09:59)
[2016-10-25] MEDS: NICOTINE 14 MG/24 HOURS TOPICAL PATCH TD SCH (10:55)
[2016-10-25] MEDS: diphenhydrAMINE HCL 50 MG CAPSULE PO PRN (21:18)
[2016-10-25] MEDS: THIAMINE HCL 100 MG TABLET (FP) PO SCH (21:18)
[2016-10-25] MEDS: MELATONIN 5 MG TABLETS PO PRN (21:19)
[2016-10-26] MEDS: amLODIPine BESYLATE 10 MG TABLET (FP) PO SCH (10:05)
[2016-10-26] MEDS: buPROPion HCL 100 MG TABLET PO SCH (10:05)
[2016-10-26] MEDS: PRENATAL VITAMINS W/ FOLIC ACID TABLET (FP) PO SCH (10:05)
[2016-10-26] MEDS: CLONIDINE HCL 0.3 MG PO SCH ×2 (10:06→22:12)
[2016-10-26] MEDS: METOPROLOL SUCCINATE 200 MG TAB.SR.24H PO SCH (10:06)
[2016-10-26] MEDS: NICOTINE 14 MG/24 HOURS TOPICAL PATCH TD SCH (10:08)
[2016-10-26] MEDS: PATIENT'S OWN MEDICATION (NON-FORMULARY) (Terbinafine Hcl [Lamisil] 250 MG) PO SCH (10:08)
[2016-10-26] MEDS: MELATONIN 5 MG TABLETS PO PRN (22:12)
[2016-10-26] MEDS: THIAMINE HCL 100 MG TABLET (FP) PO SCH (22:12)
[2016-10-26] MEDS: diphenhydrAMINE HCL 50 MG CAPSULE PO PRN (22:13)
[2016-10-27] MEDS: buPROPion HCL 100 MG TABLET PO SCH (10:09)
[2016-10-27] MEDS: PRENATAL VITAMINS W/ FOLIC ACID TABLET (FP) PO SCH (10:09)
[2016-10-27] MEDS: PATIENT'S OWN MEDICATION (NON-FORMULARY) (Terbinafine Hcl [Lamisil] 250 MG) PO SCH (10:10)
[2016-10-27] MEDS: CLONIDINE HCL 0.3 MG PO SCH ×2 (10:10→21:42)
[2016-10-27] MEDS: METOPROLOL SUCCINATE 200 MG TAB.SR.24H PO SCH (10:10)
[2016-10-27] MEDS: amLODIPine BESYLATE 10 MG TABLET (FP) PO SCH (10:10)
[2016-10-27] MEDS: NICOTINE 14 MG/24 HOURS TOPICAL PATCH TD SCH (11:23)
[2016-10-27] MEDS ORDERED: PT OWN MED DRAWER 7, Y5N ONE ×3 (20:02→22:12)
[2016-10-27] MEDS: THIAMINE HCL 100 MG TABLET (FP) PO SCH (21:43)
[2016-10-27] MEDS: diphenhydrAMINE HCL 50 MG CAPSULE PO PRN (21:43)
[2016-10-27] MEDS: MELATONIN 5 MG TABLETS PO PRN (21:45)
[2016-10-28] MEDS: amLODIPine BESYLATE 10 MG TABLET (FP) PO SCH (10:15)
[2016-10-28] MEDS: METOPROLOL SUCCINATE 200 MG TAB.SR.24H PO SCH (10:15)
[2016-10-28] MEDS: CLONIDINE HCL 0.3 MG PO SCH ×2 (10:15→22:02)
[2016-10-28] MEDS: buPROPion HCL 100 MG TABLET PO SCH (10:15)
[2016-10-28] MEDS: PRENATAL VITAMINS W/ FOLIC ACID TABLET (FP) PO SCH (10:15)
[2016-10-28] MEDS: NICOTINE 14 MG/24 HOURS TOPICAL PATCH TD SCH (10:16)
[2016-10-28] MEDS: PATIENT'S OWN MEDICATION (NON-FORMULARY) (Terbinafine Hcl [Lamisil] 250 MG) PO SCH (10:17)
[2016-10-28] MEDS ORDERED: PT OWN MED DRAWER 7, Y5N ONE (20:57)
[2016-10-28] MEDS: MELATONIN 5 MG TABLETS PO PRN (22:02)
[2016-10-28] MEDS: THIAMINE HCL 100 MG TABLET (FP) PO SCH (22:02)
[2016-10-28] MEDS: diphenhydrAMINE HCL 50 MG CAPSULE PO PRN (22:02)
[2016-10-29] MEDS ORDERED: PT OWN MED DRAWER 7, Y5N ONE ×2 (08:45→19:38)
[2016-10-29] MEDS: buPROPion HCL 100 MG TABLET PO SCH (10:10)
[2016-10-29] MEDS: PRENATAL VITAMINS W/ FOLIC ACID TABLET (FP) PO SCH (10:10)
[2016-10-29] MEDS: CLONIDINE HCL 0.3 MG PO SCH ×2 (10:11→21:33)
[2016-10-29] MEDS: NICOTINE 14 MG/24 HOURS TOPICAL PATCH TD SCH (10:11)
[2016-10-29] MEDS: amLODIPine BESYLATE 10 MG TABLET (FP) PO SCH (10:11)
[2016-10-29] MEDS: MELATONIN 5 MG TABLETS PO PRN (10:11)
[2016-10-29] MEDS: METOPROLOL SUCCINATE 200 MG TAB.SR.24H PO SCH (10:11)
[2016-10-29] MEDS: PATIENT'S OWN MEDICATION (NON-FORMULARY) (Terbinafine Hcl [Lamisil] 250 MG) PO SCH (10:12)
[2016-10-29] MEDS: diphenhydrAMINE HCL 50 MG CAPSULE PO PRN (21:32)
[2016-10-29] MEDS: THIAMINE HCL 100 MG TABLET (FP) PO SCH (21:33)
[2016-10-30] MEDS ORDERED: PT OWN MED DRAWER 7, Y5N ONE ×2 (08:48→20:58)
[2016-10-30] MEDS: amLODIPine BESYLATE 10 MG TABLET (FP) PO SCH (09:36)
[2016-10-30] MEDS: NICOTINE 14 MG/24 HOURS TOPICAL PATCH TD SCH (09:36)
[2016-10-30] MEDS: CLONIDINE HCL 0.3 MG PO SCH ×2 (09:36→21:36)
[2016-10-30] MEDS: MELATONIN 5 MG TABLETS PO PRN (09:36)
[2016-10-30] MEDS: METOPROLOL SUCCINATE 200 MG TAB.SR.24H PO SCH (09:36)
[2016-10-30] MEDS: buPROPion HCL 100 MG TABLET PO SCH (09:36)
[2016-10-30] MEDS: PRENATAL VITAMINS W/ FOLIC ACID TABLET (FP) PO SCH (09:36)
[2016-10-30] MEDS: PATIENT'S OWN MEDICATION (NON-FORMULARY) (Terbinafine Hcl [Lamisil] 250 MG) PO SCH (09:37)
[2016-10-30] MEDS: diphenhydrAMINE HCL 50 MG CAPSULE PO PRN (21:35)
[2016-10-30] MEDS: THIAMINE HCL 100 MG TABLET (FP) PO SCH (21:36)
[2016-10-31] MEDS ORDERED: PT OWN MED DRAWER 7, Y5N ONE (09:33)
[2016-10-31] MEDS: buPROPion HCL 100 MG TABLET PO SCH (10:26)
[2016-10-31] MEDS: amLODIPine BESYLATE 10 MG TABLET (FP) PO SCH (10:27)
[2016-10-31] MEDS: METOPROLOL SUCCINATE 200 MG TAB.SR.24H PO SCH (10:27)
[2016-10-31] MEDS: PATIENT'S OWN MEDICATION (NON-FORMULARY) (Terbinafine Hcl [Lamisil] 250 MG) PO SCH (10:27)
[2016-10-31] MEDS: PRENATAL VITAMINS W/ FOLIC ACID TABLET (FP) PO SCH (10:27)
[2016-10-31] MEDS: CLONIDINE HCL 0.3 MG PO SCH ×2 (10:27→21:57)
[2016-10-31] MEDS: NICOTINE 14 MG/24 HOURS TOPICAL PATCH TD SCH (10:29)
--- NOTE | 2016-10-31 12:02 | PN ---
Psychiatric Progress Note Vital Signs: Vital Signs Period Temp Pulse Resp BP Sys/Lemus Pulse Ox Last 24 Hr 98.3 F 57-57 16-18 127-151/78-94 Date of Session: 10/31/16 Chief Complaint:: Discharge Note HPI: Patient addressing Alcohol and Cocaine Dependence comorbid with Nicotine Dependence and Substance-Induced Mood Disorder ROS: HTN, +PPD and abnormal kidney function were medically managed Current Medications: Active Medications Generic Name Dose Route Start Last Admin Trade Name Freq PRN Reason Stop Dose Admin Acetaminophen 650 mg 10/17/16 15:24 10/21/16 15:46 Tylenol - PO 650 mg Q4H PRN Administration FEVER OR PAIN Al Hydroxide/Mg Hydroxide 30 ml 10/17/16 15:24 Mylanta Oral Suspension - PO Q6H PRN DYSPEPSIA Amlodipine Besylate 10 mg 10/18/16 14:23 10/31/16 10:27 Norvasc - PO 10 mg DAILY JESÚS Administration Bupropion HCl 100 mg 10/18/16 14:24 10/31/16 10:26 Wellbutrin - PO 100 mg DAILY JESÚS Administration Diphenhydramine HCl 50 mg 10/17/16 15:24 10/30/16 21:35 Benadryl - PO 50 mg HSMR1 PRN Administration FOR ITCHING Eucalyptus/Menthol/Phenol/Sorbitol 1 each 10/17/16 15:24 Cepastat Lozenge - MM Q4H PRN SORE THROAT Guaifenesin 10 ml 10/17/16 15:24 10/22/16 10:14 Robitussin Dm - PO 10 ml Q6H PRN Administration COUGH Hydroxyzine Pamoate 50 mg 10/17/16 15:24 Vistaril - PO Q4H PRN AGITATION Ibuprofen 400 mg 10/17/16 15:24 Motrin - PO Q6H PRN PAIN Loperamide HCl 4 mg 10/17/16 15:24 Imodium - PO Q6H PRN DIARRHEA Magnesium Hydroxide 30 ml 10/17/16 15:24 Milk Of Magnesia - PO DAILY PRN CONSTIPATION Melatonin 5 mg 10/18/16 13:17 10/30/16 09:36 Melatonin PO 5 mg HS PRN Administration INSOMNIA Metoprolol Succinate 200 mg 10/18/16 14:19 10/31/16 10:27 Toprol Xl - PO 200 mg DAILY JESÚS Administration Nicotine 14 mg 10/17/16 15:30 10/31/16 10:29 Nicoderm Patch - TD Not Given DAILY JESÚS Nicotine Polacrilex 2 mg 10/17/16 15:24 Nicorette Gum - BUC Q2H PRN NICOTINE REPLACEMENT RX Non-Formulary Medication 250 mg 10/18/16 10:00 10/31/16 10:27 Terbinafine Hcl [Lamisil] PO 250 mg DAILY JESÚS Administration Non-Formulary Med [ 0.3 each 10/18/16 14:18 10/31/16 10:27 For Catapress] PO 0.3 each Clonidine Hcl 0.3 Mg BID JESÚS Administration Tablets Multivit/Folic Acid/Iron 1 tab 10/18/16 10:00 10/31/16 10:27 Vitamins (Sjr) - PO 1 tab DAILY JESÚS Administration Pseudoephedrine/Triprolidine 1 combo 10/17/16 15:24 10/18/16 04:38 Actifed - PO 1 combo TID PRN Administration NASAL CONGESTION Thiamine HCl 100 mg 10/17/16 22:00 10/30/16 21:36 Vitamin B1 - PO Not Given HS JESÚS Current Side Effect: No Lab tests ordered: Yes Lab tests reviewed: Yes Provider note:: Patient will complete this program on 11/01/16. He has met his treatment goals and will continue to address his issues in outpatient treatment at [facility]. Told commercial insurance underwriter that from his participation in this program, he has learned to stay focus and connected. He responded well to Melatonin 5 mg po HS and wellburtrin 100 mg po daily. Script for these medications will be electronically transmitted to [facility] at [address] [place] [address]. He is stable for discharge on 11/01/16 Total face to face time:: 35 Mental Status Exam - Mental Status Exam Alert and Oriented to: Time, Place, Person Cognitive Function: Fair Patient Appearance: Well Groomed Mood: Hopeful, Euthymic Affect: Appropriate Patient Behavior: Cooperative Speech Pattern: Clear Voice Loudness: Normal Thought Process: Intact, Goal Oriented Thought Disorder: Not Present Hallucinations: Denies Suicidal Ideation: Denies Homicidal Ideation: Denies Insight/Judgement: Fair Sleep: Fair Appetite: Good Muscle strength/Tone: Normal Gait/Station: Normal Psychiatric Treatment Plan - Problem List (1) Alcohol dependence Current Visit: Yes (2) Cocaine dependence Current Visit: No Qualifiers: Substance use status: uncomplicated Qualified Code(s): F14.20 - Cocaine dependence, uncomplicated (3) Nicotine dependence Current Visit: No Qualifiers: Nicotine product type: cigarettes Substance use status: in withdrawal Qualified Code(s): F17.213 - Nicotine dependence, cigarettes, with withdrawal (4) Substance induced mood disorder Current Visit: No (5) Hypertension Current Visit: No (6) PPD positive, treated Current Visit: Yes (7) Abnormal kidney function Current Visit: Yes Initial treatment plan: Patient will be discharged tomorrow and referred to [facility] for outpatient treatment
[2016-10-31] MEDS: diphenhydrAMINE HCL 50 MG CAPSULE PO PRN (21:57)
[2016-10-31] MEDS: THIAMINE HCL 100 MG TABLET (FP) PO SCH (21:57)
[2016-10-31] MEDS: MELATONIN 5 MG TABLETS PO PRN (21:58)
[2016-11-01 06:54] VITALS: BP 148/91; PULSE 53; TEMP 97.6
[2016-11-01] MEDS: CLONIDINE HCL 0.3 MG PO SCH (09:32)
[2016-11-01] MEDS: PRENATAL VITAMINS W/ FOLIC ACID TABLET (FP) PO SCH (09:33)
[2016-11-01] MEDS: buPROPion HCL 100 MG TABLET PO SCH (09:33)
[2016-11-01] MEDS: amLODIPine BESYLATE 10 MG TABLET (FP) PO SCH (09:33)
[2016-11-01] MEDS: PATIENT'S OWN MEDICATION (NON-FORMULARY) (Terbinafine Hcl [Lamisil] 250 MG) PO SCH (09:33)
[2016-11-01] MEDS: METOPROLOL SUCCINATE 200 MG TAB.SR.24H PO SCH (09:33)
[2016-11-01] MEDS: NICOTINE 14 MG/24 HOURS TOPICAL PATCH TD SCH (09:33)
[2016-11-01] MEDS ORDERED: PT OWN MED DRAWER 7, Y5N ONE (09:34)
== END 2016-11-01 09:45 | disposition home or self-care (01) | DRG 772 ==
LOC: YASAS 13:35 → Y3W 13:36
PROVIDERS: ADMIT Psychiatry & Neurology Psychiatry; ATTEND Psychiatry & Neurology Psychiatry
PROC: HZ42ZZZ Group Counseling for Substance Abuse Treatment, Cognitive-Behavioral (ICD-10-PCS; principal; 2016-10-17)
DX: F11.20 Opioid dependence, uncomplicated (principal); F14.20 Cocaine dependence, uncomplicated; F17.213 Nicotine dependence, cigarettes, with withdrawal; F19.24 Other psychoactive substance dependence with psychoactive substance-induced mood disorder; I10 Essential (primary) hypertension; N28.9 Disorder of kidney and ureter, unspecified; Z59.0 Homelessness

== ENCOUNTER 2018-03-13 16:28 | Inpatient (IN) | payer OTHER ==
[2018-03-13 17:29] VITALS: BMI 28.7
--- NOTE | 2018-03-13 17:49 | HP ---
"CIWA Score Nausea/Vomitin-No Nausea/No Vomiting Muscle Tremors: 4-Moderate,w/Arms Extend Anxiety: 3 Agitation: 3 Paroxysmal Sweats: 3 (Increased facial moisture) Orientation: 1-Uncertain about Date Tacttile Disturbances: 0-None Auditory Disturbances: 0-None Visual Disturbances: 0-None Headache: 0-None Present CIWA-Ar Total Score: 14 - Admission Criteria OAS Guidelines: Admission for Medically Managed Detox: Requires at least one of the followin. CIWA greater than 12 2. Seizures within the past 24 hours 3. Delirium tremens within the past 24 hours 4. Hallucinations within the past 24 hours 5. Acute intervention needed for co occurring medical disorder 6. Acute intervention needed for co occurring psychiatric disorder 7. Severe withdrawal that cannot be handled at a lower level of care (continued vomiting, continued diarrhea, abnormal vital signs) requiring intravenous medication and/or fluids 8. Patient presents the following: CIWA greater than 12 Admission Criteria Met: Admission criteria met Admission ROS [facility] Chief Complaint: Here for alcohol and cocaine withdrawal. Allergies/Adverse Reactions: Allergies Allergy/AdvReac Type Severity Reaction Status Date / Time No Known Allergies Allergy Verified 03/13/18 19:52 History of Present Illness: Here for detox from alcohol w/concurrent use of coaine. Alcohol use began at age 15. Cocaine use began at age 20. Nicotine use began at age 25. Denies seizures, blackouts, overdoses. Hx: HTN - non-compliant with medications. States last took B/P meds 3 days ago. Importance of compliance discussed. HX: PPD (+) Treated w/ INH. C/o cough x 1 day. Denies SOB. Hx depression. Denies thoughts of harming self or others. Search Terms: Spencer Avery, 1970 Search Date: 03/13/2018 05:42:02 PM The Drug Utilization Report below displays all of the controlled substance prescriptions, if any, that your patient has filled in the last twelve months. The information displayed on this report is compiled from pharmacy submissions to the Department, and accurately reflects the information as submitted by the pharmacies. This report was requested by: Krissy Robertson | Reference #: [id number] There are no results for the search terms that you entered. Exam Limitations: No Limitations - Ebola screening Have you traveled outside of the country in the last 21 days: No Have you had contact with anyone from an Ebola affected area: No Have you been sick,other than usual withdrawal symptoms: No Do you have a fever: No - Review of Systems Constitutional: Diaphoresis, Changes in sleep (Difficulty staying asleep) EENT: reports: Blurred Vision Respiratory: reports: Cough (Cough x 1 day - states productive of greenish phlegm. Denies SOB/Chest pain) Cardiac: reports: No Symptoms Reported GI: reports: Diarrhea (c/o watery brown diarrhea.) : reports: No Symptoms Reported Musculoskeletal: reports: Joint Pain ((L) knee pain when rains or snows. No pain at this moment) Integumentary: reports: No Symptoms Reported Neuro: reports: Headache, Tremors Endocrine: reports: Increased Thirst Hematology: reports: No Symptoms Reported Psychiatric: reports: Judgement Intact, Agitated, Anxious, Depressed (Denies thoughts of harming self or others.), Disorientated Patient History - Patient Medical History Hx Anemia: No Hx Asthma: No Hx Chronic Obstructive Pulmonary Disease (COPD): No Hx Cancer: No Hx Cardiac Disorders: No Hx Congestive Heart Failure: No Hx Hypertension: Yes (Non-compliant w/ medications) Hx Hypercholesterolemia: No Hx Pacemaker: No HX Cerebrovascular Accident: No Hx Seizures: No Hx Dementia: No Hx Diabetes: No Hx Gastrointestinal Disorders: No Hx Liver Disease: No Hx Genitourinary Disorders: No Hx Sexually Transmitted Disorders: No Hx Renal Disease (ESRD): No Hx Thyroid Disease: No Hx Human Immunodeficiency Virus (HIV): No Hx Hepatitis C: No Hx Depression: Yes Hx Suicide Attempt: No Hx Bipolar Disorder: No Hx Schizophrenia: No - Patient Surgical History Past Surgical History: No Hx Neurologic Surgery: No Hx Cataract Extraction: No Hx Cardiac Surgery: No Hx Lung Surgery: No Hx Breast Surgery: No Hx Breast Biopsy: No Hx Abdominal Surgery: No Hx Appendectomy: No Hx Cholecystectomy: No Hx Genitourinary Surgery: No Hx Section: No Hx Orthopedic Surgery: No Anesthesia Reaction: No - PPD History Previous Implant?: Yes Documented Results: Positive w/o proof (States hx PPD (+). States was rx'd w/ INH and Vit B) Results: Chest x-ray PPD to be Administered?: No - Smoking Cessation Smoking history: Current every day smoker Have you smoked in the past 12 months: Yes Aproximately how many cigarettes per day: 20 Hx Chewing Tobacco Use: No Initiated information on smoking cessation: Yes 'Breaking Loose' booklet given: 03/13/18 - Substance & Tx. History Hx Alcohol Use: Yes Hx Substance Use: Yes Substance Use Type: Alcohol, Cocaine Hx Substance Use Treatment: Yes (detox, rehab) - Substances Abused Alcohol Route: Oral Frequency: Daily Amount used: 2 PINTS OF VODKA Age of first use: 15 Date of Last Use: 03/12/18 Cocaine Route: Smoking Frequency: 1-2 times per week Amount used: $200 Age of first use: 20 Date of Last Use: 03/12/18 Admission Physical Exam S - Vital Signs Vital Signs: Vital Signs - 24 hr 03/13/18 17:26 Temperature 98.8 F Pulse Rate 88 Respiratory 18 Rate Blood Pressure 190/100 H - Physical General Appearance: Yes: Nourished, Moderate Distress, Tremorous, Irritable, Sweating, Anxious HEENTM: Yes: EOMI, Hearing grossly Normal, Normocephalic, Normal Voice, GHASSAN, Nasal Congestion (Nasal congestion w/ thich greenish nasal discharge.) Respiratory: Yes: Chest Non-Tender, Lungs Clear, Normal Breath Sounds, No Respiratory Distress, Other (Noisy, spontaneous cough w/whitush phlegm) Neck: Yes: No masses,lesions,Nodules, Supple Breast: Yes: Breast Exam Deferred Cardiology: Yes: Regular Rhythm, Regular Rate, S1, S2, Edema (Slight, soft, non- pitting, edema (L) ankle area. Socks are very tight.) Abdominal: Yes: Non Tender, Soft, Increased Bowel Sounds, Protuberent ( Increased abdominal adiposity) Genitourinary: Yes: Within Normal Limits Back: Yes: Normal Inspection Musculoskeletal: Yes: full range of Motion, Gait Steady Extremities: Yes: Normal Capillary Refill, Normal Range of Motion, Tremors ( Gross tremors of hands) Neurological: Yes: manager deli II-XII NML intact, Alert, Motor Strength 5/5 Integumentary: Yes: Normal Color, Dry, Warm (Repeat temp = 100.5), Other (Tips of fingers w/ increased tenderness r/t womack from smoking (cigarettes and 'pipe' ) Skin w/o blisters or increased erythema.) Lymphatic: Yes: Within Normal Limits - Diagnostic (1) Alcohol dependence with uncomplicated withdrawal Current Visit: Yes Status: Acute (2) Cocaine dependence Current Visit: Yes Status: Chronic Qualifiers: Substance use status: uncomplicated Qualified Code(s): F14.20 - Cocaine dependence, uncomplicated (3) Nicotine dependence Current Visit: Yes Status: Chronic Qualifiers: Nicotine product type: cigarettes Substance use status: in withdrawal Qualified Code(s): F17.213 - Nicotine dependence, cigarettes, with withdrawal (4) PPD positive, treated Current Visit: No Status: Acute (5) Hypertension Current Visit: Yes Status: Chronic Qualifiers: Hypertension type: essential hypertension Qualified Code(s): I10 - Essential (primary) hypertension (6) Burn NOS mult fingers Current Visit: Yes Status: Chronic Comment: Closed skin, w/o blisters, from cigarette and pipe (7) Sinusitis Current Visit: Yes Status: Acute Qualifiers: Sinusitis location: unspecified location Chronicity: acute Recurrence: not specified as recurrent Qualified Code(s): J01.90 - Acute sinusitis, unspecified Cleared for Admission S - Detox or Rehab [facility] Level of Care: Medically Managed Detox Regimen/Protocol: Librium [facility] Breath Alcohol Content Breath Alcohol Content: 0 Urine Drug Screen - Results Drug Screen Negative: No Urine Drug Screen Results: ADIEL-Cocaine"
[2018-03-13] MEDS ORDERED: MENTHOL/PHENOL 1 EACH UD MM PRN (20:50)
[2018-03-13] MEDS ORDERED: IBUPROFEN 400 MG TABLET (FP) PO PRN (20:50)
[2018-03-13] MEDS ORDERED: LOPERAMIDE HCL 2 MG CAPSULE PO PRN (20:50)
[2018-03-13] MEDS ORDERED: chlordiazePOXIDE HCL 25 MG CAPSULE PO ONE (20:50)
[2018-03-13] MEDS ORDERED: MAGNESIUM HYDROX 2400MG/30ML ORAL SUSPENSION 30 ML CUP PO PRN (20:50)
[2018-03-13] MEDS ORDERED: MAGNESIUM CITRATE 300 ML BOTTLE PO PRN (20:50)
[2018-03-13] MEDS ORDERED: MAG HYDROX/AL HYDROX/SIMETH 30 ML UNIT-DOSE CUP PO PRN (20:50)
[2018-03-13] MEDS ORDERED: P-EPHED 60MG/TRIPROLIDI 2.5MG TABLET PO PRN (20:50)
[2018-03-13] MEDS ORDERED: guaiFENesin 200 MG/10 ML 10 ML UNIT-DOSE CUPS PO PRN (20:57)
[2018-03-13] MEDS ORDERED: ACETAMINOPHEN 325 MG TABLET (FP) PO ONE (21:00)
[2018-03-13] MEDS ORDERED: cloNIDine HCL 0.1 MG TABLET PO ONE (21:03)
[2018-03-13] MEDS ORDERED: AZITHROMYCIN 250 MG TABLET PO ONE (21:15)
[2018-03-13] MEDS ORDERED: NICOTINE POLACRILEX 2 MG GUM BUC PRN (21:33)
[2018-03-13] MEDS ORDERED: MELATONIN 5 MG TABLETS PO PRN (22:00)
[2018-03-13] MEDS: chlordiazePOXIDE HCL 25 MG CAPSULE PO SCH (23:07)
[2018-03-13] MEDS: THIAMINE HCL 100 MG TABLET (FP) PO SCH (23:08)
[2018-03-14] MEDS: chlordiazePOXIDE HCL 25 MG CAPSULE PO SCH ×4 (06:26→23:00)
[2018-03-14] MEDS: chlordiazePOXIDE HCL 25 MG CAPSULE PO PRN ×2 (08:02→21:07)
[2018-03-14] MEDS: PRENATAL VITAMINS W/ FOLIC ACID TABLET (FP) PO SCH (10:23)
[2018-03-14] MEDS: AZITHROMYCIN 250 MG TABLET PO SCH (10:23)
[2018-03-14] MEDS: LISINOPRIL 10 MG TABLET (FP) PO SCH (10:23)
[2018-03-14] MEDS: amLODIPine BESYLATE 10 MG TABLET (FP) PO SCH (10:25)
[2018-03-14] MEDS: NICOTINE 21 MG/24 HOURS TOPICAL PATCH TD SCH (10:26)
[2018-03-14 10:29] LABS: HEMATOCRIT 32.9 % (35.4-49); HEMOGLOBIN 11.4 GM/dL (11.7-16.9); MCH 31.2 pg (25.7-33.7); MCHC 34.7 g/dl (32.0-35.9); MEAN PLT VOLUME 7.1 fl (7.5-11.1); PLATELET COUNT 439 K/MM3 (134-434); RBC 3.65 M/mm3 (4.00-5.60); RDW 15.3 % (11.9-15.9)
[2018-03-14 10:53] LABS: ALBUMIN 2.9 g/dl (3.4-5.0); ALK PHOS 110 U/L (45-117); ANION GAP 9 MMOL/L (8-16); BILIRUBIN,TOTAL 0.2 mg/dL (0.2-1); BLOOD UREA NITROGEN 52 mg/dL (7-18); CALCIUM 7.6 mg/dL (8.5-10.1); CHLORIDE 112 mmol/L (98-107); CO2 23 mmol/L (21-32); CREATININE 5.8 mg/dL (0.55-1.3); GLUCOSE,RANDOM 109 mg/dL (74-106); POTASSIUM 3.7 mmol/L (3.5-5.1); SGOT/AST 15 U/L (15-37); SGPT/ALT 26 U/L (13-61); SODIUM 144 mmol/L (136-145)
--- NOTE | 2018-03-14 14:18 | EKG ---
Test Reason : Blood Pressure : / mmHG Vent. Rate : 075 BPM Atrial Rate : 075 BPM P-R Int : 158 ms QRS Dur : 084 ms QT Int : 368 ms P-R-T Axes : 071 010 059 degrees QTc Int : 410 ms POOR DATA QUALITY, INTERPRETATION MAY BE ADVERSELY AFFECTED NORMAL SINUS RHYTHM T WAVE ABNORMALITY, CONSIDER LATERAL ISCHEMIA ABNORMAL ECG WHEN COMPARED WITH ECG OF 13-OCT-2016 21:50, T WAVE INVERSION NOW EVIDENT IN LATERAL LEADS QT HAS SHORTENED Confirmed by RUBY MONTAGUE MD ([id number]) on 03/14/2018 2:17:43 PM Referred By: Confirmed By:RUBY MONTAGUE MD
--- NOTE | 2018-03-14 16:49 | PN ---
S CIWA - CIWA Score Nausea/Vomitin-No Nausea/No Vomiting Muscle Tremors: 3 Anxiety: 2 Agitation: 0-Normal Activity Paroxysmal Sweats: 3 Orientation: 0-Oriented Tacttile Disturbances: 0-None Auditory Disturbances: 2-Mild Harshness/Frighten Visual Disturbances: 0-None Headache: 2-Mild CIWA-Ar Total Score: 12 S Progress Note (SOAP) Subjective: Interrupted Sleep, Sweating, H/A, Tremors, Diarrhea, Stomach Cramping. Objective: PATIENT A & O X 3, OBSERVED AMBULATING ON UNIT. IN NO ACUTE DISTRESS. PATIENT DENIES CHEST PAIN. 03/14/18 16:47 Vital Signs Temperature 98.1 F 03/14/18 13:19 Pulse Rate 78 03/14/18 13:19 Respiratory Rate 18 03/14/18 13:19 Blood Pressure 218/122 H 03/14/18 13:19 O2 Sat by Pulse Oximetry (%) Laboratory Tests 03/14/18 03/14/18 03/14/18 07:00 07:00 07:00 WBC 9.0 RBC 3.65 L Hgb 11.4 L Hct 32.9 L MCV 90.0 MCH 31.2 MCHC 34.7 RDW 15.3 Plt Count 439 H MPV 7.1 L Sodium 144 Potassium 3.7 Chloride 112 H Carbon Dioxide 23 Anion Gap 9 BUN 52 H Creatinine 5.8 H Creat Clearance w eGFR 10.53 Random Glucose 109 H Calcium 7.6 L Total Bilirubin 0.2 AST 15 ALT 26 Alkaline Phosphatase 110 Total Protein 6.0 L Albumin 2.9 L RPR Titer HIV 1&2 Antibody Screen Negative HIV P24 Antigen Negative 03/14/18 07:00 WBC RBC Hgb Hct MCV MCH MCHC RDW Plt Count MPV Sodium Potassium Chloride Carbon Dioxide Anion Gap BUN Creatinine Creat Clearance w eGFR Random Glucose Calcium Total Bilirubin AST ALT Alkaline Phosphatase Total Protein Albumin RPR Titer Nonreactive HIV 1&2 Antibody Screen HIV P24 Antigen LABS NOTED. 03/14/18 16:48 Assessment: 03/14/18 16:50 WITHDRAWAL SYMPTOMS. Plan: CONTINUE DETOX. PATIENT CURRENTLY RECEIVING DAILY MVI CONTAINING B VITAMINS AND IRON WHILE ADMITTED FOR DETOX. D/C IBUPROFEN AND MAGNESIUM-CONTAINING MEDS. FOR ABNORMAL ADMISSION RENAL LAB VALUES. BMP WITH REPEAT CBC ON 03/15/2018 FOR ANEMIA AND FOR ABNORMAL ADMISSION RENAL LABS VALUES.
[2018-03-14] MEDS ORDERED: LISINOPRIL 20 MG TABLET (FP) PO ONE (18:15)
[2018-03-14] MEDS ORDERED: cloNIDine HCL 0.1 MG TABLET PO ONE (20:54)
[2018-03-14] MEDS: ACETAMINOPHEN 325 MG TABLET (FP) PO PRN (21:07)
[2018-03-14] MEDS: THIAMINE HCL 100 MG TABLET (FP) PO SCH (22:59)
[2018-03-15] MEDS: chlordiazePOXIDE HCL 25 MG CAPSULE PO SCH ×3 (05:22→17:16)
[2018-03-15] MEDS ORDERED: cloNIDine HCL 0.1 MG TABLET PO ONE (06:38)
[2018-03-15] MEDS ORDERED: LABETALOL HCL 100 MG TABLET (FP) PO ONE (06:46)
--- NOTE | 2018-03-15 06:46 | PN ---
[facility] Progress Note Note: seen for elevated asymptomatic elevated b/p. denies sob, c.p., headache. "I am not getting my clonidine 0.3 mg doc" Vital Signs (72 hours) 03/13/18 03/14/18 03/14/18 17:26 00:30 03:30 Temperature 98.8 F Pulse Rate 88 Respiratory 18 19 18 Rate Blood Pressure 190/100 H 03/14/18 03/14/18 03/14/18 06:12 07:55 09:23 Temperature 98.2 F 98.6 F Pulse Rate 76 75 75 Respiratory 18 18 18 Rate Blood Pressure 186/91 H 167/115 H 174/108 H 03/14/18 03/14/18 03/14/18 13:19 17:19 21:53 Temperature 98.1 F 98.9 F 100.9 F H Pulse Rate 78 71 78 Respiratory 18 18 22 H Rate Blood Pressure 218/122 H 179/111 H 169/101 H 03/15/18 03/15/18 03/15/18 00:30 03:30 06:00 Temperature 97.9 F Pulse Rate 70 Respiratory 18 18 18 Rate Blood Pressure 166/102 H client does not have his home medication with him. due to contraindication of metoprolol and clonidine noted will verify client medication with client home pharmacy before restarting labetalol 200 mg po x 1 dose now
[2018-03-15] MEDS: NICOTINE 21 MG/24 HOURS TOPICAL PATCH TD SCH (10:57)
[2018-03-15] MEDS: amLODIPine BESYLATE 10 MG TABLET (FP) PO SCH (10:59)
[2018-03-15] MEDS: PRENATAL VITAMINS W/ FOLIC ACID TABLET (FP) PO SCH (10:59)
[2018-03-15] MEDS: LISINOPRIL 10 MG TABLET (FP) PO SCH (11:00)
[2018-03-15] MEDS: AZITHROMYCIN 250 MG TABLET PO SCH (11:00)
[2018-03-15] MEDS ORDERED: cloNIDine HCL 0.1 MG TABLET PO SCH (11:00)
--- NOTE | 2018-03-15 15:32 | PN ---
[facility] Progress Note Note: clonidine 0.3mg was d/c due to medication contraindication to other BP medication that pt is currently on. Provider will need to consult with pt PCP to acknowledge that pt will not be able to continue with clonidine and will increase on his other BP medication to stabilize his BP.
--- NOTE | 2018-03-15 16:05 | PN ---
[facility] CIWA - CIWA Score Nausea/Vomitin-Mild Nausea/No Vomiting Muscle Tremors: 2 Anxiety: 1-Mildly Anxious Agitation: 1-Slight > Activity Paroxysmal Sweats: 2 Orientation: 0-Oriented Tacttile Disturbances: 1-Very Mild Itch/Numbness Auditory Disturbances: 0-None Visual Disturbances: 0-None Headache: 0-None Present CIWA-Ar Total Score: 8 [facility] Progress Note (SOAP) Subjective: interrupted sleep,sweats ,shakes Objective: 03/15/18 16:02 Vital Signs Temperature 97.9 F 03/15/18 14:08 Pulse Rate 76 03/15/18 14:08 Respiratory Rate 20 03/15/18 14:08 Blood Pressure 137/74 03/15/18 14:08 O2 Sat by Pulse Oximetry (%) Laboratory Tests 03/14/18 03/14/18 03/14/18 07:00 07:00 07:00 WBC 9.0 RBC 3.65 L Hgb 11.4 L Hct 32.9 L MCV 90.0 MCH 31.2 MCHC 34.7 RDW 15.3 Plt Count 439 H MPV 7.1 L Sodium 144 Potassium 3.7 Chloride 112 H Carbon Dioxide 23 Anion Gap 9 BUN 52 H Creatinine 5.8 H Creat Clearance w eGFR 10.53 Random Glucose 109 H Calcium 7.6 L Total Bilirubin 0.2 AST 15 ALT 26 Alkaline Phosphatase 110 Total Protein 6.0 L Albumin 2.9 L RPR Titer HIV 1&2 Antibody Screen Negative HIV P24 Antigen Negative 03/14/18 07:00 WBC RBC Hgb Hct MCV MCH MCHC RDW Plt Count MPV Sodium Potassium Chloride Carbon Dioxide Anion Gap BUN Creatinine Creat Clearance w eGFR Random Glucose Calcium Total Bilirubin AST ALT Alkaline Phosphatase Total Protein Albumin RPR Titer Nonreactive HIV 1&2 Antibody Screen HIV P24 Antigen pt aox3 in nad lying in bed Assessment: 03/15/18 16:04 withdrawal sx's crf htn anemia elevated platlet count 03/15/18 16:07 03/15/18 16:11 Plan: cont. detox monitor bp pt needs to f/up with renal , will provide copy of labs at d/c
[2018-03-15] MEDS: THIAMINE HCL 100 MG TABLET (FP) PO SCH (22:42)
[2018-03-15] MEDS: chlordiazePOXIDE 5 MG CAPSULE PO SCH (22:42)
[2018-03-15] MEDS: ACETAMINOPHEN 325 MG TABLET (FP) PO PRN (22:42)
[2018-03-16] MEDS: chlordiazePOXIDE 5 MG CAPSULE PO SCH ×3 (05:56→17:13)
[2018-03-16] MEDS: ACETAMINOPHEN 325 MG TABLET (FP) PO PRN (09:00)
[2018-03-16] MEDS: LISINOPRIL 10 MG TABLET (FP) PO SCH (10:53)
[2018-03-16] MEDS: amLODIPine BESYLATE 10 MG TABLET (FP) PO SCH (10:53)
[2018-03-16] MEDS: PRENATAL VITAMINS W/ FOLIC ACID TABLET (FP) PO SCH (10:53)
[2018-03-16] MEDS: AZITHROMYCIN 250 MG TABLET PO SCH (10:54)
[2018-03-16] MEDS: NICOTINE 21 MG/24 HOURS TOPICAL PATCH TD SCH (10:54)
--- NOTE | 2018-03-16 12:03 | PN ---
[facility] Progress Note (SOAP) Subjective: Headache, runny nose, interrupted sleep Objective: 03/16/18 12:01 Vital Signs 03/16/18 03/16/18 06:45 09:20 Temperature 98.1 F 97.9 F Pulse Rate 65 63 Respiratory 20 20 Rate Blood Pressure 161/96 197/98 H Laboratory Last Values WBC 9.0 K/mm3 (4.0-10.0) 03/14/18 07:00 RBC 3.65 M/mm3 (4.00-5.60) L 03/14/18 07:00 Hgb 11.4 GM/dL (11.7-16.9) L 03/14/18 07:00 Hct 32.9 % (35.4-49) L 03/14/18 07:00 MCV 90.0 fl (80-96) 03/14/18 07:00 MCH 31.2 pg (25.7-33.7) 03/14/18 07:00 MCHC 34.7 g/dl (32.0-35.9) 03/14/18 07:00 RDW 15.3 % (11.9-15.9) 03/14/18 07:00 Plt Count 439 K/MM3 (134-434) H 03/14/18 07:00 MPV 7.1 fl (7.5-11.1) L 03/14/18 07:00 Sodium 144 mmol/L (136-145) 03/14/18 07:00 Potassium 3.7 mmol/L (3.5-5.1) 03/14/18 07:00 Chloride 112 mmol/L (98-107) H 03/14/18 07:00 Carbon Dioxide 23 mmol/L (21-32) 03/14/18 07:00 Anion Gap 9 MMOL/L (8-16) 03/14/18 07:00 BUN 52 mg/dL (7-18) H 03/14/18 07:00 Creatinine 5.8 mg/dL (0.55-1.3) H 03/14/18 07:00 Creat Clearance w eGFR 10.53 (>60) 03/14/18 07:00 Random Glucose 109 mg/dL (74-106) H 03/14/18 07:00 Calcium 7.6 mg/dL (8.5-10.1) L 03/14/18 07:00 Total Bilirubin 0.2 mg/dL (0.2-1) 03/14/18 07:00 AST 15 U/L (15-37) 03/14/18 07:00 ALT 26 U/L (13-61) 03/14/18 07:00 Alkaline Phosphatase 110 U/L (45-117) 03/14/18 07:00 Total Protein 6.0 g/dl (6.4-8.2) L 03/14/18 07:00 Albumin 2.9 g/dl (3.4-5.0) L 03/14/18 07:00 RPR Titer Nonreactive (NONREACTIVE) 03/14/18 07:00 HIV 1&2 Antibody Screen Negative 03/14/18 07:00 HIV P24 Antigen Negative 03/14/18 07:00 Labs noted, abnormal values with kidney function Assessment: 03/16/18 12:04 Withdrawal sx CKD stage 5 Plan: Continue detox Patient to follow up with PCP to follow up renal function due to stage 5 CKD, potassium and sodium are wnl Encourage oral fluid intake
--- NOTE | 2018-03-16 12:57 | PN ---
[facility] Progress Note Note: Patient with elevated blood pressure this afternoon with no symptoms. Discussed his renal status and how that is contributing to his elevated blood pressures. Patient aware of his renal condition but has not followed up with PCP recently and does not remember last blood work. His BUN /Cr on 03/14 was 52/5.8, GFR 10. Patient aware he needs hemodialysis, he refuses to go to [facility] because it is too far from his dad who lives in [place]. He is scheduled for discharge tomorrow; 03/17/18, he has verbalized he will follow up with his PCP whose office is right across from his dad. Vital Signs Temperature 97.9 F 03/16/18 09:20 Pulse Rate 63 03/16/18 09:20 Respiratory Rate 20 03/16/18 09:20 Blood Pressure 197/98 H 03/16/18 09:20 O2 Sat by Pulse Oximetry (%) Vital Signs - 24 hr 03/15/18 03/15/18 03/15/18 14:08 17:08 21:32 Temperature 97.9 F 98.2 F 100.6 F H Pulse Rate 76 67 70 Respiratory 20 18 18 Rate Blood Pressure 137/74 142/77 148/96 03/16/18 03/16/18 03/16/18 00:30 03:30 06:45 Temperature 98.1 F Pulse Rate 65 Respiratory 18 18 20 Rate Blood Pressure 161/96 03/16/18 09:20 Temperature 97.9 F Pulse Rate 63 Respiratory 20 Rate Blood Pressure 197/98 H
--- NOTE | 2018-03-16 15:55 | DS ---
[facility] Detox Discharge Summary Admission Date: 03/13/18 Discharge Date: 03/16/18 - History Pertinent Past History: CKD stage 5, uncontrolled hypertension - Physical Exam Results Vital Signs: Vital Signs Temperature 97.5 F L 03/16/18 13:51 Pulse Rate 64 03/16/18 13:51 Respiratory Rate 16 03/16/18 13:51 Blood Pressure 172/106 H 03/16/18 13:51 O2 Sat by Pulse Oximetry (%) Pertinent Admission Physical Exam Findings: Withdrawal sx Laboratory Last Values WBC 9.0 K/mm3 (4.0-10.0) 03/14/18 07:00 RBC 3.65 M/mm3 (4.00-5.60) L 03/14/18 07:00 Hgb 11.4 GM/dL (11.7-16.9) L 03/14/18 07:00 Hct 32.9 % (35.4-49) L 03/14/18 07:00 MCV 90.0 fl (80-96) 03/14/18 07:00 MCH 31.2 pg (25.7-33.7) 03/14/18 07:00 MCHC 34.7 g/dl (32.0-35.9) 03/14/18 07:00 RDW 15.3 % (11.9-15.9) 03/14/18 07:00 Plt Count 439 K/MM3 (134-434) H 03/14/18 07:00 MPV 7.1 fl (7.5-11.1) L 03/14/18 07:00 Sodium 144 mmol/L (136-145) 03/14/18 07:00 Potassium 3.7 mmol/L (3.5-5.1) 03/14/18 07:00 Chloride 112 mmol/L (98-107) H 03/14/18 07:00 Carbon Dioxide 23 mmol/L (21-32) 03/14/18 07:00 Anion Gap 9 MMOL/L (8-16) 03/14/18 07:00 BUN 52 mg/dL (7-18) H 03/14/18 07:00 Creatinine 5.8 mg/dL (0.55-1.3) H 03/14/18 07:00 Creat Clearance w eGFR 10.53 (>60) 03/14/18 07:00 Random Glucose 109 mg/dL (74-106) H 03/14/18 07:00 Calcium 7.6 mg/dL (8.5-10.1) L 03/14/18 07:00 Total Bilirubin 0.2 mg/dL (0.2-1) 03/14/18 07:00 AST 15 U/L (15-37) 03/14/18 07:00 ALT 26 U/L (13-61) 03/14/18 07:00 Alkaline Phosphatase 110 U/L (45-117) 03/14/18 07:00 Total Protein 6.0 g/dl (6.4-8.2) L 03/14/18 07:00 Albumin 2.9 g/dl (3.4-5.0) L 03/14/18 07:00 RPR Titer Nonreactive (NONREACTIVE) 03/14/18 07:00 HIV 1&2 Antibody Screen Negative 03/14/18 07:00 HIV P24 Antigen Negative 03/14/18 07:00 Labs notedpanic values noted, discussion with patient earlier today concerning his medical condition - Medication Discharge Medications: Ambulatory Orders Amlodipine Besylate [Norvasc -] 10 mg PO DAILY #30 tablet 10/31/16 Metoprolol Succinate [Toprol XL -] 200 mg PO DAILY #30 tab 10/31/16 Clonidine HCl 0.3 mg PO BID 03/13/18 Lisinopril 10 mg PO DAILY 03/13/18 - Diagnosis (1) Alcohol dependence with uncomplicated withdrawal Current Visit: Yes Status: Acute (2) Cocaine dependence Current Visit: Yes Status: Chronic Qualifiers: Substance use status: uncomplicated Qualified Code(s): F14.20 - Cocaine dependence, uncomplicated (3) Hypertension Current Visit: Yes Status: Chronic Qualifiers: Hypertension type: essential hypertension Qualified Code(s): I10 - Essential (primary) hypertension (4) Nicotine dependence Current Visit: Yes Status: Chronic Qualifiers: Nicotine product type: cigarettes Substance use status: in withdrawal Qualified Code(s): F17.213 - Nicotine dependence, cigarettes, with withdrawal (5) Substance induced mood disorder Current Visit: Yes Status: Acute - AMA Did Patient Leave Against Medical Advice: Yes (Patient instructed earleir today to f/u with PCP post d/c)
--- NOTE | 2018-03-16 17:51 | PN ---
S Progress Note Note: patient changed his mind to stay and complete detox
--- NOTE | 2018-03-16 18:03 | PN ---
[facility] Progress Note Note: bp 192/104,on multiple medications for bp,no complaint,clonidine 0.1 mg po now , bp monitoring
[2018-03-16] MEDS ORDERED: cloNIDine HCL 0.1 MG TABLET PO ONE (18:15)
[2018-03-16] MEDS: THIAMINE HCL 100 MG TABLET (FP) PO SCH (23:52)
[2018-03-16] MEDS: chlordiazePOXIDE HCL 10 MG CAPSULE PO SCH (23:52)
[2018-03-17] MEDS ORDERED: cloNIDine HCL 0.1 MG TABLET PO ONE (06:43)
[2018-03-17 06:44] VITALS: TEMP 98.1
--- NOTE | 2018-03-17 06:47 | PN ---
[facility] Progress Note Note: Patient's blood pressure this morning is B/P 178/107. Patiet is asymptomatic Vital Signs Temperature 98.1 F 03/17/18 06:44 Pulse Rate 66 03/17/18 06:44 Respiratory Rate 20 03/17/18 06:44 Blood Pressure 178/107 H 03/17/18 06:44 O2 Sat by Pulse Oximetry (%) Action: Clonidine 0.1mg 1 tablet oral ordered
[2018-03-17] MEDS: chlordiazePOXIDE HCL 10 MG CAPSULE PO SCH (06:55)
[2018-03-17 09:27] VITALS: BP 175/106; PULSE 61
--- NOTE | 2018-03-17 16:45 | DS ---
[facility] Detox Discharge Summary Admission Date: 03/13/18 Discharge Date: 03/17/18 - History Present History: Alcohol Dependence, Cocaine Dependence Pertinent Past History: Pt states will be going home today. Does not want to go to rehab. Will f/u with AA meetings. f/u PCP for high BP - Physical Exam Results Vital Signs: Vital Signs Temperature 98.1 F 03/17/18 09:26 Pulse Rate 61 03/17/18 09:26 Respiratory Rate 16 03/17/18 09:26 Blood Pressure 175/106 H 03/17/18 09:26 O2 Sat by Pulse Oximetry (%) - Treatment Hospital Course: Detox Protocol Followed, Detoxed Safely, Responded well, Discharged Condition Good - Medication Discharge Medications: Ambulatory Orders Amlodipine Besylate [Norvasc -] 10 mg PO DAILY #30 tablet 10/31/16 Metoprolol Succinate [Toprol XL -] 200 mg PO DAILY #30 tab 10/31/16 Clonidine HCl 0.3 mg PO BID 03/13/18 Lisinopril 10 mg PO DAILY 03/13/18 - AMA Did Patient Leave Against Medical Advice: No
== END 2018-03-17 09:37 | disposition home or self-care (01) | DRG 774 ==
LOC: YASAS 16:28 → Y6N 20:53
PROVIDERS: ADMIT Neuromusculoskeletal Medicine & OMM; ATTEND Neuromusculoskeletal Medicine & OMM
PROC: HZ2ZZZZ Detoxification Services for Substance Abuse Treatment (ICD-10-PCS; principal; 2018-03-13)
DX: F10.230 Alcohol dependence with withdrawal, uncomplicated (principal); F14.20 Cocaine dependence, uncomplicated; F17.213 Nicotine dependence, cigarettes, with withdrawal; F19.24 Other psychoactive substance dependence with psychoactive substance-induced mood disorder; I12.0 Hypertensive chronic kidney disease with stage 5 chronic kidney disease or end stage renal disease; N18.5 Chronic kidney disease, stage 5; D64.9 Anemia, unspecified; D47.3 Essential (hemorrhagic) thrombocythemia; R76.11 Nonspecific reaction to tuberculin skin test without active tuberculosis; J01.90 Acute sinusitis, unspecified; R60.9 Edema, unspecified; Z91.14 Patient's other noncompliance with medication regimen
CPT/HCPCS: 36415; 80053; 85027; 86593; 87389; 93005; 93010; J0735

== ENCOUNTER 2019-02-07 15:29 | Inpatient (IN) | payer OTHER ==
[2019-02-07 17:03] VITALS: BMI 30.7
--- NOTE | 2019-02-07 17:44 | HP ---
CIWA Score Nausea/Vomitin-No Nausea/No Vomiting Muscle Tremors: None Anxiety: 0-No Anxiety, at Ease Agitation: 0-Normal Activity Paroxysmal Sweats: No Perspiration Orientation: 0-Oriented Tacttile Disturbances: 0-None Auditory Disturbances: 0-None Visual Disturbances: 0-None Headache: 0-None Present CIWA-Ar Total Score: 0 - Admission Criteria OASAS Guidelines: Admission for Medically Managed Detox: Requires at least one of the followin. CIWA greater than 12 2. Seizures within the past 24 hours 3. Delirium tremens within the past 24 hours 4. Hallucinations within the past 24 hours 5. Acute intervention needed for co occurring medical disorder 6. Acute intervention needed for co occurring psychiatric disorder 7. Severe withdrawal that cannot be handled at a lower level of care (continued vomiting, continued diarrhea, abnormal vital signs) requiring intravenous medication and/or fluids 8. Patient presents the following: None of the above Admission Criteria Met: Admission criteria not met Admitting History and Physical - Smoking History Smoking history: Current every day smoker Have you smoked in the past 12 months: Yes Aproximately how many cigarettes per day: 20 - Alcohol/Substance Use Hx Alcohol Use: Yes Admission ROS [facility] Chief Complaint: referred for rehab for alcoho dependence Allergies/Adverse Reactions: Allergies Allergy/AdvReac Type Severity Reaction Status Date / Time No Known Allergies Allergy Verified 02/07/19 16:39 History of Present Illness: HERE FOR INPATIENT REHAB. CLIENT IS REFERRED BY [facility] AFTER BEING HOSPITALIZED FOR 3 DAYS AND TREATED FOR CAP. CLIENT IS DC ON PO VANTIN AND DOXYCYCLINE. HE IS KNOWN TO THIS PROGRAM. LAST ADMISSION 02/2018. HE REPORTS DAILY USE OF ALCOHOL. APPROX 1 GALLON. 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 DENIES HX/O SZ, BLACKOUTS, AVH. DENIES ANY SIGNIFICANT PERIOD OF CLEAN TIME. LIVES WITH FATHER, UNEMPLOYED, DENIES LEGALS. ELEVATED B/P NOTED. CLIENT IS ASYMPTOMATIC DC PAPER PRESENT AND REVIEWED Exam Limitations: No Limitations - Ebola screening Have you traveled outside of the country in the last 21 days: No (N) Have you had contact with anyone from an Ebola affected area: No Do you have a fever: No - Review of Systems Constitutional: No Symptoms Reported EENT: reports: No Symptoms Reported, Other (HORSE VOICE) Respiratory: reports: Cough Cardiac: reports: No Symptoms Reported GI: reports: No Symptoms Reported : reports: No Symptoms Reported Musculoskeletal: reports: No Symptoms Reported Integumentary: reports: No Symptoms Reported Neuro: reports: No Symptoms reported Endocrine: reports: No Symptoms Reported Hematology: reports: No Symptoms Reported Psychiatric: reports: No Sypmtoms Reported, Agitated (IRRITABLE DUE TO LONG WAIT TIME) Other Systems: Reviewed and Negative Patient History - Patient Medical History Hx Anemia: No Hx Asthma: No Hx Chronic Obstructive Pulmonary Disease (COPD): No Hx Cancer: No Hx Cardiac Disorders: No Hx Congestive Heart Failure: No Hx Hypertension: Yes (Non-compliant w/ medications) Hx Hypercholesterolemia: No Hx Pacemaker: No HX Cerebrovascular Accident: No Hx Seizures: No Hx Dementia: No Hx Diabetes: No Hx Gastrointestinal Disorders: No Hx Liver Disease: No Hx Genitourinary Disorders: No Hx Sexually Transmitted Disorders: No Hx Renal Disease (ESRD): No Hx Thyroid Disease: No Hx Human Immunodeficiency Virus (HIV): No Hx Hepatitis C: No Hx Depression: Yes (NO MEDS) Hx Suicide Attempt: No Hx Bipolar Disorder: No Hx Schizophrenia: No - Patient Surgical History Past Surgical History: No Hx Neurologic Surgery: No Hx Cataract Extraction: No Hx Cardiac Surgery: No Hx Lung Surgery: No Hx Breast Surgery: No Hx Breast Biopsy: No Hx Abdominal Surgery: No Hx Appendectomy: No Hx Cholecystectomy: No Hx Genitourinary Surgery: No Hx Section: No Hx Orthopedic Surgery: No Anesthesia Reaction: No - PPD History Previous Implant?: Yes Implanted On Prior [facility] Admission?: No Results: CXR 2017 PPD to be Administered?: No - Smoking Cessation Smoking history: Current every day smoker Have you smoked in the past 12 months: Yes Aproximately how many cigarettes per day: 10 Cigars Per Day: 0 Hx Chewing Tobacco Use: No Initiated information on smoking cessation: Yes 'Breaking Loose' booklet given: 02/07/19 - Substance & Tx. History Hx Alcohol Use: Yes Hx Substance Use: Yes Substance Use Type: Alcohol, Cocaine Hx Substance Use Treatment: Yes ([facility]) - Substances abused Alcohol Substance route: Oral Frequency: 3-6 times per week (3X WEEK) Amount used: 1 gallon of vodka Age of first use: 15 Date of last use: 02/03/19 Crack Substance route: Smoking Frequency: 3-6 times per week (QOD) Amount used: $ 300 Age of first use: 25 Date of last use: 02/03/19 Admission Physical Exam S - Vital Signs Vital Signs: Vital Signs - 24 hr 02/07/19 16:36 Temperature 97.9 F Pulse Rate 70 Respiratory 16 Rate Blood Pressure 187/104 H - Physical General Appearance: Yes: No Apparent Distress, Irritable HEENTM: Yes: EOMI, Normocephalic, Normal Voice, GHASSAN, Pharynx Normal, Other (DR GIPSON COUGH) Respiratory: Yes: Chest Non-Tender, Lungs Clear, Normal Breath Sounds, No Respiratory Distress, No Accessory Muscle Use, Other (DRY COUGH) Neck: Yes: No masses,lesions,Nodules, Supple, Trachea in good position Breast: Yes: Breasts Symetrical Cardiology: Yes: Regular Rhythm, Regular Rate, S1, S2 Abdominal: Yes: Normal Bowel Sounds, Non Tender, Soft, Protuberent Genitourinary: Yes: Within Normal Limits Back: Yes: Normal Inspection Musculoskeletal: Yes: full range of Motion, Gait Steady Extremities: Yes: Normal Capillary Refill, Normal Range of Motion, Non-Tender, Pedal Edema (BLE 2+ PITTING EDEMA) Neurological: Yes: Fully Oriented, Alert, Motor Strength 5/5, Normal Mood/Affect Integumentary: Yes: Dry, Warm, Other (ABRASIONS TO BOTH FEET WITH SCABS) Lymphatic: Yes: Within Normal Limits - Diagnostic (1) Alcohol dependence, uncomplicated Current Visit: Yes Status: Acute (2) Cocaine dependence, uncomplicated Current Visit: Yes Status: Acute (3) CAP (community acquired pneumonia) Current Visit: Yes Status: Acute Qualifiers: Laterality: unspecified laterality Qualified Code(s): J18.9 - Pneumonia, unspecified organism (4) CKD (chronic kidney disease) stage 5, GFR less than 15 ml/min Current Visit: Yes Status: Chronic (5) Normocytic anemia Current Visit: Yes Status: Chronic (6) Depressed affect Current Visit: Yes Status: Acute (7) PPD positive, treated Current Visit: Yes Status: Chronic (8) Hypertension Current Visit: Yes Status: Chronic Qualifiers: Hypertension type: essential hypertension Qualified Code(s): I10 - Essential (primary) hypertension Cleared for Admission [facility] - Detox or Rehab Detox Regimen/Protocol: Not Applicable Claeared for Rehab Admission: Yes Breathalyzer - Breathalyzer Breathalyzer: 0 Urine Drug Screen - Test Device Lot number: [id number] Expiration date: 09/11/20 - Control Is test valid?: Yes - Results Drug screen NEGATIVE: No Urine drug screen results: ADIEL-Cocaine Inpatient Rehab Admission - Rehab Decision to Admit Inpatient rehab admission?: Yes - Initial Determination Are CD services needed?: Yes Free of communicable disease: No Not in need of hospitalization: Yes - Rehab Admission Criteria Previous failed treatment: Yes Poor recovery environment: Yes Comorbidities: Yes Lacks judgement: No Patient is meeting Inpatient Rehab admission criteria:: Yes
[2019-02-07] MEDS ORDERED: MAGNESIUM CITRATE 300 ML BOTTLE PO PRN (17:59)
[2019-02-07] MEDS ORDERED: LOPERAMIDE HCL 2 MG CAPSULE PO PRN (17:59)
[2019-02-07] MEDS ORDERED: IBUPROFEN 400 MG TABLET (FP) PO PRN (17:59)
[2019-02-07] MEDS ORDERED: ACETAMINOPHEN 325 MG TABLET (FP) PO PRN (17:59)
[2019-02-07] MEDS ORDERED: hydrOXYzine PAMOATE 25 MG CAPSULE (FP) PO PRN (17:59)
[2019-02-07] MEDS ORDERED: MAG HYDROX/AL HYDROX/SIMETH 30 ML UNIT-DOSE CUP PO PRN (17:59)
[2019-02-07] MEDS ORDERED: MAGNESIUM HYDROX 2400MG/30ML ORAL SUSPENSION 30 ML CUP PO PRN (17:59)
[2019-02-07] MEDS: LABETALOL HCL 200 MG, LABETALOL HCL 100 MG PO SCH (21:13)
[2019-02-07] MEDS: cloNIDine HCL 0.1 MG TABLET PO SCH (21:14)
[2019-02-07] MEDS: MELATONIN 5 MG TABLETS PO PRN (21:14)
[2019-02-07] MEDS: THIAMINE HCL 100 MG TABLET (FP) PO SCH (21:14)
[2019-02-07] MEDS: FUROSEMIDE 20 MG TABLET (FP) PO SCH (21:14)
[2019-02-07] MEDS ORDERED: PATIENT'S OWN MEDICATION (NON-FORMULARY) (Labetalol Hcl [Labetalol Hcl] 300 MG) PO SCH (22:00)
[2019-02-07] MEDS: SODIUM BICARBONATE 650 MG TABLET PO SCH (22:11)
[2019-02-08] MEDS: guaiFENesin 200 MG/10 ML 10 ML UNIT-DOSE CUPS PO PRN (01:17)
[2019-02-08] MEDS: LABETALOL HCL 200 MG, LABETALOL HCL 100 MG PO SCH ×3 (06:40→21:10)
[2019-02-08] MEDS: DOXYCYCLINE HYCLATE 100 MG TABLET PO SCH (07:07)
[2019-02-08] MEDS: CEFPODOXIME PROXETIL 100 MG TABLET PO SCH (07:07)
[2019-02-08] MEDS: PRENATAL VITAMINS W/ FOLIC ACID TABLET (FP) PO SCH (10:03)
[2019-02-08] MEDS: ASPIRIN 81 MG CHEWABLE TABLETS PO SCH (10:05)
[2019-02-08] MEDS: cloNIDine HCL 0.1 MG TABLET PO SCH ×2 (10:06→21:09)
[2019-02-08] MEDS: LISINOPRIL 5 MG TABLET (FP) PO SCH (10:06)
[2019-02-08] MEDS: FUROSEMIDE 20 MG TABLET (FP) PO SCH ×2 (10:06→22:10)
[2019-02-08] MEDS: SODIUM BICARBONATE 650 MG TABLET PO SCH ×2 (10:07→21:11)
[2019-02-08] MEDS: NICOTINE 14 MG/24 HOURS TOPICAL PATCH TD SCH (10:09)
[2019-02-08 12:38] LABS: HEMATOCRIT 26.3 % (35.4-49); HEMOGLOBIN 8.7 GM/dL (11.7-16.9); MCH 29.2 pg (25.7-33.7); MCHC 32.9 g/dl (32.0-35.9); MEAN CELL VOLUME 88.5 fl (80-96); PLATELET COUNT 432 K/MM3 (134-434); RBC 2.97 M/mm3 (4.00-5.60); RDW 17.1 % (11.9-15.9); WHITE BLOOD COUNT 12.3 K/mm3 (4.0-10.0)
[2019-02-08 12:52] LABS: ALBUMIN 3.2 g/dl (3.4-5.0); BILIRUBIN,TOTAL 0.5 mg/dL (0.2-1); BLOOD UREA NITROGEN 82.6 mg/dL (7-18); CALCIUM 8.1 mg/dL (8.5-10.1); CREATININE 7.1 mg/dL (0.55-1.3); POTASSIUM 3.7 mmol/L (3.5-5.1); TOT PROT 6.5 g/dl (6.4-8.2)
--- NOTE | 2019-02-08 13:33 | EKG ---
Test Reason : Blood Pressure : / mmHG Vent. Rate : 072 BPM Atrial Rate : 072 BPM P-R Int : 186 ms QRS Dur : 086 ms QT Int : 422 ms P-R-T Axes : 066 003 144 degrees QTc Int : 462 ms POOR DATA QUALITY, INTERPRETATION MAY BE ADVERSELY AFFECTED NORMAL SINUS RHYTHM POSSIBLE LEFT ATRIAL ENLARGEMENT LEFT VENTRICULAR HYPERTROPHY T WAVE ABNORMALITY, CONSIDER LATERAL ISCHEMIA PROLONGED QT ABNORMAL ECG WHEN COMPARED WITH ECG OF 13-MAR-2018 21:13, NO SIGNIFICANT CHANGE WAS FOUND Confirmed by MD KELTON, SHARON ([id number]) on 02/08/2019 1:33:13 PM Referred By: Confirmed By:SHARON MELARA MD
[2019-02-08] MEDS: MELATONIN 5 MG TABLETS PO PRN (21:12)
[2019-02-08] MEDS: THIAMINE HCL 100 MG TABLET (FP) PO SCH (21:12)
[2019-02-09] MEDS: CEFPODOXIME PROXETIL 100 MG TABLET PO SCH (07:13)
[2019-02-09] MEDS: DOXYCYCLINE HYCLATE 100 MG TABLET PO SCH (07:13)
[2019-02-09] MEDS: LABETALOL HCL 200 MG, LABETALOL HCL 100 MG PO SCH ×3 (07:13→21:14)
[2019-02-09] MEDS: PRENATAL VITAMINS W/ FOLIC ACID TABLET (FP) PO SCH (09:45)
[2019-02-09] MEDS: LISINOPRIL 5 MG TABLET (FP) PO SCH (09:45)
[2019-02-09] MEDS: cloNIDine HCL 0.1 MG TABLET PO SCH ×2 (09:45→21:12)
[2019-02-09] MEDS: ASPIRIN 81 MG CHEWABLE TABLETS PO SCH (09:45)
[2019-02-09] MEDS: SODIUM BICARBONATE 650 MG TABLET PO SCH ×2 (09:45→21:13)
[2019-02-09] MEDS: NICOTINE 14 MG/24 HOURS TOPICAL PATCH TD SCH (09:45)
[2019-02-09] MEDS: FUROSEMIDE 20 MG TABLET (FP) PO SCH ×2 (12:04→21:12)
[2019-02-09] MEDS: THIAMINE HCL 100 MG TABLET (FP) PO SCH (21:15)
[2019-02-09] MEDS: MELATONIN 5 MG TABLETS PO PRN (21:15)
[2019-02-09] MEDS: NICOTINE POLACRILEX 2 MG GUM BC PRN (21:15)
[2019-02-10] MEDS: LABETALOL HCL 200 MG, LABETALOL HCL 100 MG PO SCH ×3 (06:19→21:14)
[2019-02-10] MEDS: DOXYCYCLINE HYCLATE 100 MG TABLET PO SCH (06:59)
[2019-02-10] MEDS: CEFPODOXIME PROXETIL 100 MG TABLET PO SCH (06:59)
[2019-02-10] MEDS: FUROSEMIDE 20 MG TABLET (FP) PO SCH ×2 (09:37→21:11)
[2019-02-10] MEDS: ASPIRIN 81 MG CHEWABLE TABLETS PO SCH (09:37)
[2019-02-10] MEDS: cloNIDine HCL 0.1 MG TABLET PO SCH ×2 (09:37→21:11)
[2019-02-10] MEDS: PRENATAL VITAMINS W/ FOLIC ACID TABLET (FP) PO SCH (09:37)
[2019-02-10] MEDS: SODIUM BICARBONATE 650 MG TABLET PO SCH ×2 (09:37→21:11)
[2019-02-10] MEDS: LISINOPRIL 5 MG TABLET (FP) PO SCH (09:37)
[2019-02-10] MEDS: NICOTINE 14 MG/24 HOURS TOPICAL PATCH TD SCH (09:39)
--- NOTE | 2019-02-10 10:40 | PN ---
[facility] Progress Note Note: Pt is a 48 y/o male with a hx of WAYLON admitted to Rehab from [facility]. Pt is known to this facility. Last admitted here from 03/13/18 to 03/17/18. Pt was seen resting in bed and reports he feels much better today and able to lay down without feeling short of breath. Denies fever or c/p. Elevated BP and on BP meds. Vital Signs - 24 hr 02/09/19 02/09/19 02/09/19 12:08 21:00 23:16 Temperature Pulse Rate 64 60 64 Respiratory 18 17 18 Rate Blood Pressure 170/102 H 186/108 H 147/88 02/10/19 02/10/19 02/10/19 00:30 03:30 06:53 Temperature 97.8 F Pulse Rate 71 Respiratory 18 18 18 Rate Blood Pressure 154/97 A/p Rehab patient s/p pneumonia on treatment(see below) Increase hydrochlorothiazide 25 mg po daily D/w pt and agreeable to medication adjustment. Addendum-- As per H/P: History of Present Illness: HERE FOR INPATIENT REHAB. CLIENT IS REFERRED BY [facility] AFTER BEING HOSPITALIZED FOR 3 DAYS AND TREATED FOR CAP. CLIENT IS DC ON PO VANTIN AND DOXYCYCLINE. HE IS KNOWN TO THIS PROGRAM. LAST ADMISSION 02/2018. HE REPORTS DAILY USE OF ALCOHOL. 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 DENIES HX/O SZ, BLACKOUTS, AVH. DENIES ANY SIGNIFICANT PERIOD OF CLEAN TIME. LIVES WITH FATHER, UNEMPLOYED, DENIES LEGALS. ELEVATED B/P NOTED. CLIENT IS ASYMPTOMATIC DC PAPER PRESENT AND REVIEWED(per admitting provider).
[2019-02-10] MEDS: guaiFENesin 200 MG/10 ML 10 ML UNIT-DOSE CUPS PO PRN (11:38)
[2019-02-10 17:02] LABS: EPI CELLS 0.1 /HPF (0-5/HPF); HYALINE CASTS 0 /lpf (0-8); PH,URINE 5.5 (5.0-8.0); URINE APPEARANCE CLEAR; URINE BACTERIA 0 /hpf (NEGATIVE); URINE BILIRUBIN NEGATIVE (NEGATIVE); URINE COLOR YELLOW; URINE GLUCOSE (UA) NEGATIVE (NEGATIVE); URINE KETONE NEGATIVE (NEGATIVE); URINE LEUK ESTERASE NEGATIVE (NEGATIVE); URINE NITRITE NEGATIVE (NEGATIVE); URINE PROTEIN 2+ (NEGATIVE); URINE RBC 1 /hpf (0-4); URINE UROBILINOGEN 0.2 mg/dL (0.2-1.0); URINE WBC 0 /hpf (0-5)
[2019-02-10] MEDS: THIAMINE HCL 100 MG TABLET (FP) PO SCH (21:11)
[2019-02-10] MEDS: MELATONIN 5 MG TABLETS PO PRN (21:15)
[2019-02-11] MEDS: LABETALOL HCL 200 MG, LABETALOL HCL 100 MG PO SCH ×3 (07:05→21:08)
[2019-02-11] MEDS: CEFPODOXIME PROXETIL 100 MG TABLET PO SCH (07:08)
[2019-02-11] MEDS: DOXYCYCLINE HYCLATE 100 MG TABLET PO SCH (07:08)
[2019-02-11] MEDS: cloNIDine HCL 0.1 MG TABLET PO SCH ×2 (10:12→21:07)
[2019-02-11] MEDS: FUROSEMIDE 20 MG TABLET (FP) PO SCH ×2 (10:12→21:07)
[2019-02-11] MEDS: SODIUM BICARBONATE 650 MG TABLET PO SCH ×2 (10:12→21:08)
[2019-02-11] MEDS: NICOTINE 14 MG/24 HOURS TOPICAL PATCH TD SCH (10:12)
[2019-02-11] MEDS: ASPIRIN 81 MG CHEWABLE TABLETS PO SCH (10:12)
[2019-02-11] MEDS: PRENATAL VITAMINS W/ FOLIC ACID TABLET (FP) PO SCH (10:12)
[2019-02-11] MEDS: LISINOPRIL 5 MG TABLET (FP) PO SCH (10:12)
[2019-02-11] MEDS: P-EPHED 60MG/TRIPROLIDI 2.5MG TABLET PO PRN (11:18)
[2019-02-11] MEDS: THIAMINE HCL 100 MG TABLET (FP) PO SCH (21:08)
[2019-02-11] MEDS: MELATONIN 5 MG TABLETS PO PRN (21:08)
[2019-02-12] MEDS: DOXYCYCLINE HYCLATE 100 MG TABLET PO SCH (07:10)
[2019-02-12] MEDS: LABETALOL HCL 200 MG, LABETALOL HCL 100 MG PO SCH ×3 (07:11→21:13)
[2019-02-12] MEDS: CEFPODOXIME PROXETIL 100 MG TABLET PO SCH (07:12)
[2019-02-12] MEDS: LISINOPRIL 5 MG TABLET (FP) PO SCH (09:50)
[2019-02-12] MEDS: PRENATAL VITAMINS W/ FOLIC ACID TABLET (FP) PO SCH (09:50)
[2019-02-12] MEDS: ASPIRIN 81 MG CHEWABLE TABLETS PO SCH (09:50)
[2019-02-12] MEDS: cloNIDine HCL 0.1 MG TABLET PO SCH ×2 (09:50→21:12)
[2019-02-12] MEDS: SODIUM BICARBONATE 650 MG TABLET PO SCH ×2 (09:51→21:13)
[2019-02-12] MEDS: FUROSEMIDE 20 MG TABLET (FP) PO SCH ×2 (09:51→21:15)
[2019-02-12] MEDS: NICOTINE 14 MG/24 HOURS TOPICAL PATCH TD SCH (09:52)
[2019-02-12] MEDS: MELATONIN 5 MG TABLETS PO PRN (21:12)
[2019-02-12] MEDS: THIAMINE HCL 100 MG TABLET (FP) PO SCH (21:13)
[2019-02-13] MEDS: guaiFENesin 200 MG/10 ML 10 ML UNIT-DOSE CUPS PO PRN (02:12)
[2019-02-13] MEDS: DOXYCYCLINE HYCLATE 100 MG TABLET PO SCH (07:25)
[2019-02-13] MEDS: LABETALOL HCL 200 MG, LABETALOL HCL 100 MG PO SCH ×3 (07:25→21:10)
[2019-02-13] MEDS: LISINOPRIL 5 MG TABLET (FP) PO SCH (09:50)
[2019-02-13] MEDS: ASPIRIN 81 MG CHEWABLE TABLETS PO SCH (09:50)
[2019-02-13] MEDS: cloNIDine HCL 0.1 MG TABLET PO SCH ×2 (09:50→21:09)
[2019-02-13] MEDS: PRENATAL VITAMINS W/ FOLIC ACID TABLET (FP) PO SCH (09:50)
[2019-02-13] MEDS: NICOTINE 14 MG/24 HOURS TOPICAL PATCH TD SCH (09:51)
[2019-02-13] MEDS: SODIUM BICARBONATE 650 MG TABLET PO SCH ×2 (09:51→21:11)
[2019-02-13] MEDS: FUROSEMIDE 20 MG TABLET (FP) PO SCH ×2 (09:51→21:09)
[2019-02-13] MEDS: CEFPODOXIME PROXETIL 100 MG TABLET PO SCH (14:27)
[2019-02-13] MEDS: THIAMINE HCL 100 MG TABLET (FP) PO SCH (21:11)
[2019-02-13] MEDS: MELATONIN 5 MG TABLETS PO PRN (21:12)
[2019-02-14] MEDS: DOXYCYCLINE HYCLATE 100 MG TABLET PO SCH (07:18)
[2019-02-14] MEDS: CEFPODOXIME PROXETIL 100 MG TABLET PO SCH (07:18)
[2019-02-14] MEDS: LABETALOL HCL 200 MG, LABETALOL HCL 100 MG PO SCH ×3 (07:18→21:10)
[2019-02-14] MEDS: SODIUM BICARBONATE 650 MG TABLET PO SCH ×2 (09:30→21:10)
[2019-02-14] MEDS: FUROSEMIDE 20 MG TABLET (FP) PO SCH ×2 (09:30→21:10)
[2019-02-14] MEDS: cloNIDine HCL 0.1 MG TABLET PO SCH ×2 (09:30→21:09)
[2019-02-14] MEDS: ASPIRIN 81 MG CHEWABLE TABLETS PO SCH (09:30)
[2019-02-14] MEDS: LISINOPRIL 5 MG TABLET (FP) PO SCH (09:30)
[2019-02-14] MEDS: NICOTINE 14 MG/24 HOURS TOPICAL PATCH TD SCH (09:30)
[2019-02-14] MEDS: PRENATAL VITAMINS W/ FOLIC ACID TABLET (FP) PO SCH (09:30)
[2019-02-14] MEDS: guaiFENesin 200 MG/10 ML 10 ML UNIT-DOSE CUPS PO PRN ×2 (13:55→21:12)
[2019-02-14] MEDS: MENTHOL/PHENOL 1 EACH UD MM PRN ×2 (14:03→19:13)
[2019-02-14] MEDS: THIAMINE HCL 100 MG TABLET (FP) PO SCH (21:11)
[2019-02-14] MEDS: MELATONIN 5 MG TABLETS PO PRN (21:12)
[2019-02-15] MEDS: MENTHOL/PHENOL 1 EACH UD MM PRN (01:52)
[2019-02-15] MEDS: P-EPHED 60MG/TRIPROLIDI 2.5MG TABLET PO PRN (02:18)
[2019-02-15] MEDS: LABETALOL HCL 200 MG, LABETALOL HCL 100 MG PO SCH ×3 (07:27→21:17)
[2019-02-15] MEDS: NICOTINE 14 MG/24 HOURS TOPICAL PATCH TD SCH (10:21)
[2019-02-15] MEDS: FUROSEMIDE 20 MG TABLET (FP) PO SCH ×2 (10:21→21:17)
[2019-02-15] MEDS: cloNIDine HCL 0.1 MG TABLET PO SCH ×2 (10:22→21:17)
[2019-02-15] MEDS: ASPIRIN 81 MG CHEWABLE TABLETS PO SCH (10:22)
[2019-02-15] MEDS: LISINOPRIL 5 MG TABLET (FP) PO SCH (10:22)
[2019-02-15] MEDS: PRENATAL VITAMINS W/ FOLIC ACID TABLET (FP) PO SCH (10:22)
[2019-02-15] MEDS: NICOTINE POLACRILEX 2 MG GUM BC PRN (10:23)
[2019-02-15] MEDS: SODIUM BICARBONATE 650 MG TABLET PO SCH ×2 (10:24→21:17)
[2019-02-15] MEDS: MELATONIN 5 MG TABLETS PO PRN (21:18)
[2019-02-15] MEDS: THIAMINE HCL 100 MG TABLET (FP) PO SCH (21:19)
[2019-02-16] MEDS: LABETALOL HCL 200 MG, LABETALOL HCL 100 MG PO SCH ×3 (06:15→21:11)
[2019-02-16] MEDS: LISINOPRIL 5 MG TABLET (FP) PO SCH (09:53)
[2019-02-16] MEDS: FUROSEMIDE 20 MG TABLET (FP) PO SCH ×2 (09:53→21:11)
[2019-02-16] MEDS: NICOTINE 14 MG/24 HOURS TOPICAL PATCH TD SCH (09:53)
[2019-02-16] MEDS: ASPIRIN 81 MG CHEWABLE TABLETS PO SCH (09:53)
[2019-02-16] MEDS: SODIUM BICARBONATE 650 MG TABLET PO SCH ×2 (09:53→21:11)
[2019-02-16] MEDS: cloNIDine HCL 0.1 MG TABLET PO SCH ×2 (09:53→21:11)
[2019-02-16] MEDS: PRENATAL VITAMINS W/ FOLIC ACID TABLET (FP) PO SCH (09:53)
[2019-02-16] MEDS: MELATONIN 5 MG TABLETS PO PRN (21:11)
[2019-02-16] MEDS: THIAMINE HCL 100 MG TABLET (FP) PO SCH (21:11)
[2019-02-17] MEDS: LABETALOL HCL 200 MG, LABETALOL HCL 100 MG PO SCH ×3 (06:59→21:24)
[2019-02-17] MEDS: PRENATAL VITAMINS W/ FOLIC ACID TABLET (FP) PO SCH (10:05)
[2019-02-17] MEDS: LISINOPRIL 5 MG TABLET (FP) PO SCH (10:05)
[2019-02-17] MEDS: ASPIRIN 81 MG CHEWABLE TABLETS PO SCH (10:05)
[2019-02-17] MEDS: NICOTINE 14 MG/24 HOURS TOPICAL PATCH TD SCH (10:05)
[2019-02-17] MEDS: cloNIDine HCL 0.1 MG TABLET PO SCH ×2 (10:05→21:25)
[2019-02-17] MEDS: FUROSEMIDE 20 MG TABLET (FP) PO SCH ×2 (10:05→21:25)
[2019-02-17] MEDS: SODIUM BICARBONATE 650 MG TABLET PO SCH ×2 (10:06→21:23)
[2019-02-17] MEDS: MELATONIN 5 MG TABLETS PO PRN (21:26)
[2019-02-17] MEDS: THIAMINE HCL 100 MG TABLET (FP) PO SCH (21:26)
[2019-02-18] MEDS: LABETALOL HCL 200 MG, LABETALOL HCL 100 MG PO SCH ×3 (06:07→21:13)
[2019-02-18] MEDS: cloNIDine HCL 0.1 MG TABLET PO SCH ×2 (10:16→21:12)
[2019-02-18] MEDS: SODIUM BICARBONATE 650 MG TABLET PO SCH ×2 (10:16→21:12)
[2019-02-18] MEDS: LISINOPRIL 5 MG TABLET (FP) PO SCH (10:16)
[2019-02-18] MEDS: NICOTINE 14 MG/24 HOURS TOPICAL PATCH TD SCH (10:16)
[2019-02-18] MEDS: PRENATAL VITAMINS W/ FOLIC ACID TABLET (FP) PO SCH (10:16)
[2019-02-18] MEDS: ASPIRIN 81 MG CHEWABLE TABLETS PO SCH (10:16)
[2019-02-18] MEDS: FUROSEMIDE 20 MG TABLET (FP) PO SCH ×2 (10:16→21:12)
[2019-02-18] MEDS: THIAMINE HCL 100 MG TABLET (FP) PO SCH (21:13)
[2019-02-18] MEDS: MELATONIN 5 MG TABLETS PO PRN (21:13)
[2019-02-19] MEDS: LABETALOL HCL 200 MG, LABETALOL HCL 100 MG PO SCH ×3 (06:12→21:22)
[2019-02-19] MEDS: cloNIDine HCL 0.1 MG TABLET PO SCH ×2 (10:16→21:21)
[2019-02-19] MEDS: SODIUM BICARBONATE 650 MG TABLET PO SCH ×2 (10:16→21:21)
[2019-02-19] MEDS: FUROSEMIDE 20 MG TABLET (FP) PO SCH ×2 (10:16→21:22)
[2019-02-19] MEDS: ASPIRIN 81 MG CHEWABLE TABLETS PO SCH (10:16)
[2019-02-19] MEDS: NICOTINE 14 MG/24 HOURS TOPICAL PATCH TD SCH (10:16)
[2019-02-19] MEDS: LISINOPRIL 5 MG TABLET (FP) PO SCH (10:17)
[2019-02-19] MEDS: PRENATAL VITAMINS W/ FOLIC ACID TABLET (FP) PO SCH (10:17)
[2019-02-19] MEDS: MELATONIN 5 MG TABLETS PO PRN (21:21)
[2019-02-19] MEDS: THIAMINE HCL 100 MG TABLET (FP) PO SCH (21:21)
[2019-02-20] MEDS: LABETALOL HCL 200 MG, LABETALOL HCL 100 MG PO SCH ×3 (06:24→21:11)
[2019-02-20] MEDS: ASPIRIN 81 MG CHEWABLE TABLETS PO SCH (10:14)
[2019-02-20] MEDS: NICOTINE 14 MG/24 HOURS TOPICAL PATCH TD SCH (10:14)
[2019-02-20] MEDS: FUROSEMIDE 20 MG TABLET (FP) PO SCH ×2 (10:14→21:11)
[2019-02-20] MEDS: PRENATAL VITAMINS W/ FOLIC ACID TABLET (FP) PO SCH (10:14)
[2019-02-20] MEDS: LISINOPRIL 5 MG TABLET (FP) PO SCH (10:14)
[2019-02-20] MEDS: cloNIDine HCL 0.1 MG TABLET PO SCH ×2 (10:14→21:11)
[2019-02-20] MEDS: SODIUM BICARBONATE 650 MG TABLET PO SCH ×2 (10:15→21:12)
[2019-02-20] MEDS: NICOTINE POLACRILEX 2 MG GUM BC PRN (10:16)
--- NOTE | 2019-02-20 12:37 | DS ---
[facility] Rehab Discharge Summary - [facility] Rehab Discharge Summary Admission Date: 02/07/19 Discharge Date: 02/21/19 - History Present History: Alcohol dependence, Cocaine dependence Additional Comments: Pt is a 48 y/o male with a hx of WAYLON admitted to rehab and scheduled to discharge on 02/21/19. Pertinent Past History: CKD HTN CAP Sinusitis Normocytic Anemia Burn multi-fingers Mood disorder - Discharge Physical Exam Vital Signs: Vital Signs Temperature 97.4 F L 02/20/19 06:51 Pulse Rate 69 02/20/19 10:00 Respiratory Rate 18 02/20/19 10:00 Blood Pressure 158/102 H 02/20/19 10:00 O2 Sat by Pulse Oximetry (%) Alert o x 3 nad oob ambulating with steady gait cardiac:s1 s2, rrr lungs:cta,vane. abdomen:soft,+bs,nt,nd extremities/skin:no edema/skin intact; multiple areas of patches of lightened skin colors-healed abrasions/escoriations. Pertinent Admission Physical Exam Findings: Laboratory Tests 02/08/19 02/08/19 02/08/19 07:30 07:30 07:30 WBC 12.3 H RBC 2.97 L Hgb 8.7 L Hct 26.3 L D MCV 88.5 MCH 29.2 MCHC 32.9 RDW 17.1 H Plt Count 432 MPV 8.0 D Sodium 140 Potassium 3.7 Chloride 107 Carbon Dioxide 23 Anion Gap 9 BUN 82.6 H Creatinine 7.1 H Est GFR (CKD-EPI)AfAm 9.60 Est GFR (CKD-EPI)NonAf 8.28 Random Glucose 104 Calcium 8.1 L Total Bilirubin 0.5 AST 48 H ALT 109 H Alkaline Phosphatase 211 H Total Protein 6.5 Albumin 3.2 L Urine Color Urine Appearance Urine pH Ur Specific [place] Urine Protein Urine Glucose (UA) Urine Ketones Urine Blood Urine Nitrite Urine Bilirubin Urine Urobilinogen Ur Leukocyte Esterase Urine WBC (Auto) Urine RBC (Auto) Urine Casts (Auto) U Epithel Cells (Auto) Urine Bacteria (Auto) RPR Titer Nonreactive 02/10/19 14:30 WBC RBC Hgb Hct MCV MCH MCHC RDW Plt Count MPV Sodium Potassium Chloride Carbon Dioxide Anion Gap BUN Creatinine Est GFR (CKD-EPI)AfAm Est GFR (CKD-EPI)NonAf Random Glucose Calcium Total Bilirubin AST ALT Alkaline Phosphatase Total Protein Albumin Urine Color Yellow Urine Appearance Clear Urine pH 5.5 Ur Specific [place] 1.008 L Urine Protein 2+ H Urine Glucose (UA) Negative Urine Ketones Negative Urine Blood Negative Urine Nitrite Negative Urine Bilirubin Negative Urine Urobilinogen 0.2 Ur Leukocyte Esterase Negative Urine WBC (Auto) 0 Urine RBC (Auto) 1 Urine Casts (Auto) 0 U Epithel Cells (Auto) 0.1 Urine Bacteria (Auto) 0 RPR Titer - Treatment Discharge Condition: Discharge condition good Hospital Course: Rehabilitated safely - Medication Discharge Medications: Ambulatory Orders Clonidine HCl 0.3 mg PO BID #60 tablet 03/17/18 Aspirin 81 mg PO DAILY 02/07/19 Cefpodoxime Proxetil [Vantin -] 200 mg PO BID 02/07/19 Doxycycline Hyclate [Vibramycin -] 100 mg PO DAILY 02/07/19 Furosemide [Lasix -] 60 mg PO BID 02/07/19 Guaifenesin [Robitussin -] 10 ml PO PRN 02/07/19 Labetalol HCl 300 mg PO TID 02/07/19 Lisinopril 5 mg PO DAILY 02/07/19 Sodium Bicarbonate - 650 mg PO BID 02/07/19 Ferrous Sulfate [Feosol] 325 mg PO TIDCM #45 ud 02/21/19 - Medication-Assisted Treatment (MAT) Medication-Assisted Treatment (MAT): No - Discharge Instructions Diet, activity, other medical instructions: Diet:JADYE Activity: oob ad nory Other medical instructions:follow up with aftercare at [facility] as scheduled follow up with your primary care provider Dr. Lisa Packer at [facility] @ [address] [place], [place] [id number]. Ph:. - Diagnosis (1) Alcohol dependence, uncomplicated Status: Chronic (2) CAP (community acquired pneumonia) Status: Resolved Qualifiers: Laterality: unspecified laterality Qualified Code(s): J18.9 - Pneumonia, unspecified organism (3) Cocaine dependence, uncomplicated Status: Chronic (4) CKD (chronic kidney disease) stage 5, GFR less than 15 ml/min Status: Chronic (5) Hypertension Status: Chronic Qualifiers: Hypertension type: essential hypertension Qualified Code(s): I10 - Essential (primary) hypertension (6) Burn NOS mult fingers Status: Chronic (7) Cocaine dependence Status: Chronic Qualifiers: Substance use status: uncomplicated Qualified Code(s): F14.20 - Cocaine dependence, uncomplicated (8) Nicotine dependence Status: Chronic Qualifiers: Nicotine product type: cigarettes Substance use status: uncomplicated Qualified Code(s): F17.210 - Nicotine dependence, cigarettes, uncomplicated - Follow-up Referral Minutes to complete discharge: 20 - AMA Did Patient Leave Against Medical Advice: No Additional Comments: Pt states he came in with own meds with him in his property.
[2019-02-20] MEDS: THIAMINE HCL 100 MG TABLET (FP) PO SCH (21:12)
[2019-02-20] MEDS: MELATONIN 5 MG TABLETS PO PRN (21:12)
[2019-02-21] MEDS: LABETALOL HCL 200 MG, LABETALOL HCL 100 MG PO SCH (06:31)
[2019-02-21 06:49] VITALS: TEMP 97.7
[2019-02-21] MEDS ORDERED: FERROUS SO4 325 MG TABLET (FP) PO SCH (08:00)
[2019-02-21] MEDS: PRENATAL VITAMINS W/ FOLIC ACID TABLET (FP) PO SCH (09:25)
[2019-02-21] MEDS: NICOTINE 14 MG/24 HOURS TOPICAL PATCH TD SCH (09:25)
[2019-02-21] MEDS: FUROSEMIDE 20 MG TABLET (FP) PO SCH (09:25)
[2019-02-21] MEDS: ASPIRIN 81 MG CHEWABLE TABLETS PO SCH (09:25)
[2019-02-21] MEDS: LISINOPRIL 5 MG TABLET (FP) PO SCH (09:25)
[2019-02-21] MEDS: cloNIDine HCL 0.1 MG TABLET PO SCH (09:26)
[2019-02-21] MEDS: SODIUM BICARBONATE 650 MG TABLET PO SCH (09:27)
[2019-02-21 11:38] VITALS: BP 137/71; PULSE 67
--- NOTE | 2019-02-21 16:57 | PN ---
S Progress Note Note: pt was discharged today as scheduled. Vital Signs - 24 hr 02/21/19 02/21/19 02/21/19 00:30 03:30 06:49 Temperature 97.7 F Pulse Rate 62 Respiratory 18 18 18 Rate Blood Pressure 181/103 H 02/21/19 10:00 Temperature Pulse Rate 67 Respiratory 18 Rate Blood Pressure 137/71 alert o x 3 nad oob ambulating with steady gait A/P medically stable Discussed withpt to follow up with his primary care provider with lab results for medical management.
== END 2019-02-21 09:45 | disposition home or self-care (01) | DRG 772 ==
LOC: YASAS 15:29 → Y5N 17:37
PROVIDERS: ADMIT Neuromusculoskeletal Medicine & OMM; ATTEND Neuromusculoskeletal Medicine & OMM
PROC: HZ42ZZZ Group Counseling for Substance Abuse Treatment, Cognitive-Behavioral (ICD-10-PCS; principal; 2019-02-07)
DX: F10.20 Alcohol dependence, uncomplicated (principal); F14.20 Cocaine dependence, uncomplicated; F17.210 Nicotine dependence, cigarettes, uncomplicated; F19.24 Other psychoactive substance dependence with psychoactive substance-induced mood disorder; I12.0 Hypertensive chronic kidney disease with stage 5 chronic kidney disease or end stage renal disease; N18.5 Chronic kidney disease, stage 5; D64.9 Anemia, unspecified; J18.9 Pneumonia, unspecified organism; J32.9 Chronic sinusitis, unspecified; R45.89 Other symptoms and signs involving emotional state; R76.11 Nonspecific reaction to tuberculin skin test without active tuberculosis; T23.039A Burn of unspecified degree of unspecified multiple fingers (nail), not including thumb, initial encounter; X08.8XXA Exposure to other specified smoke, fire and flames, initial encounter
CPT/HCPCS: 36415; 80053; 81003; 85027; 86593; 93005; 93010; J0735